=== PATIENT | female | born 1950 | race Caucasian/White ===

== ENCOUNTER 2018-01-23 01:59 | Inpatient (IN) | payer OTHER, MEDICARE ==
[~2018-01-23] VITALS: Ht 157.5 cm; Wt 80.1 kg
--- NOTE | 2018-01-23 02:03 | ED GI/GU/ABDOMINAL COMPLAINT ---
History of Present Illness General Chief Complaint: General Adult Stated Complaint: N/V/D Source: patient, EMS Exam Limitations: no limitations Vital Signs & Intake/Output Vital Signs & Intake/Output Vital Signs Date Time Temp Pulse Resp B/P B/P Pulse O2 O2 Flow FiO2 Mean Ox Delivery Rate 01/23 0610 99.5 94 20 130/62 94 Room Air 01/23 0602 Room Air 01/23 0544 98.4 93 20 166/72 96 Nasal Cannula 01/23 0212 96 Room Air 01/23 0202 97.5 98 18 186/88 96 Room Air Allergies Coded Allergies: Penicillins (HIVES 01/23/18) midazolam (From VERSED) (NAUSEA 01/23/18) Reconcile Medications Apixaban (Eliquis) 5 MG TABLET 1 TAB PO BID A.fib (Reported) Atorvastatin Calcium (Lipitor) 20 MG TABLET 1 TAB PO DAILY cholesterol ( Reported) Clopidogrel Bisulfate (Plavix) 75 MG TABLET 1 TAB PO DAILY heart health ( Reported) Diltiazem HCl (Diltiazem 12HR ER) 120 MG CAP.ER.12H 1 CAP PO DAILY A.fib ( Reported) Hydrochlorothiazide 12.5 MG TABLET 1 TAB PO DAILY htn (Reported) Losartan Potassium (Cozaar) 50 MG TABLET 1 TAB PO DAILY htn (Reported) Metoprolol Succ XL (Toprol XL) 25 MG TAB 3 TAB PO DAILY Heart (Reported) Montelukast Sodium (Singulair) 10 MG TABLET 1 TAB PO DAILY asthma (Reported) Niacin (Niaspan) 500 MG TAB.ER.24H 1.5 TAB PO QPM cholesterol (Reported) Sertraline HCl (Zoloft) 100 MG TABLET 1.5 TAB PO DAILY mental health ( Reported) Triage Nurses Notes Reviewed? yes ? n Is pt currently ? No Onset: Gradual Duration: day(s):, waxing and waning Timing: recent history Location: generalized abdomen Radiation: no radiation Activities at Onset: none Prior Abdominal Problems: none Modifying Factors: Worsens With: defecating, vomiting. Associated Symptoms: abdominal pain HPI: 67 yo woman h/o diabetes, cck, abdominal wall hernia, presents with 3 days of nausea, vomiting, diarrhea, without abdominal pain, fever, dysuria, chest pain. She notes not fever, headache, dyspnea, chest pain. She notes no suspicious food ingestions. She is otherwise well. Past History Travel History Traveled to [place] past 21 day No Medical History Any Pertinent Medical History? see below for history Gastrointestinal: abdominal wall hernia Endocrine: diabetes Surgical History Surgical History: cholecystectomy Family History Hx Contributory? No Review of Systems Review of Systems Constitutional: Reports: no symptoms. EENTM: Reports: no symptoms. Respiratory: Reports: no symptoms. Cardiovascular: Reports: no symptoms. GI: Reports: no symptoms. Genitourinary: Reports: no symptoms. Musculoskeletal: Reports: no symptoms. Skin: Reports: no symptoms. Neurological/Psychological: Reports: no symptoms. Hematologic/Endocrine: Reports: no symptoms. Immunologic/Allergic: Reports: no symptoms. All Other Systems: Reviewed and Negative Physical Exam Physical Exam General Appearance: well developed/nourished, mild distress, moderate distress Head: atraumatic, normal appearance Eyes: Bilateral: normal appearance. Ears, Nose, Throat, Mouth: hearing grossly normal Neck: normal inspection, supple, full range of motion, normal alignment Respiratory: normal breath sounds, chest non-tender, no respiratory distress, quiet respiration, lungs clear Cardiovascular: regular rate/rhythm Gastrointestinal: soft, large abdominal wall hernia, diminished bowel sounds. no focal tenderness Back: normal inspection Extremities: normal range of motion Neurologic/Psych: no motor/sensory deficits, awake, alert, oriented x 3 Skin: intact, normal color, warm/dry Core Measures ACS in differential dx? No Sepsis Present: No Sepsis Focused Exam Completed? No Progress Differential Diagnosis: biliary colic, bowel obstruction, cholecystitis, diverticulitis, gastritis, hepatitis, pancreatitis, PUD/GERD Plan of Care: Orders Procedure Date/time Status Nothing by Mouth 01/23 B Active Weight 01/23 0556 Active Vital Signs 01/23 0556 Active Teach/Educate 01/23 05 Active Pain Treatment and Response 01/24 556 Active Nutritional Intake, Monitor 01/24 556 Active Isolation 01/23 05 Active Intake & Output 01/23 0556 Active Patient Care Conference 01/23 0556 Active Activity/Ambulation 01/23 05 Active Patient Data 01/23 0504 Active LACTIC ACID 01/23 0504 Complete Saline Lock 01/23 0407 Active Misc Message 01/23 0407 Active ED Holding Orders 01/23 0407 Active Admit to inpatient 01/23 0407 Active Vital Signs 01/23 0407 Active Code Status 01/23 0407 Active FingerStick- Glucose 01/23 213 Active RAPID VIRAL INFLUENZA A 01/24 204 Complete TROPONIN LEVEL 01/24 204 Complete LIPASE 01/24 204 Complete LACTIC ACID 01/24 204 Complete HEPATIC FUNCTION PANEL 01/24 204 Complete CBC WITHOUT DIFFERENTIAL 01/24 204 Complete BASIC METABOLIC PANEL 01/24 204 Complete AMYLASE 01/24 204 Complete ACETONE 01/24 204 Complete EKG 01/24 204 Active Intake & Output 01/23 203 Active Current Medications Sig/Fatimah Start time Last Medication Dose Stop Time Status Admin Montelukast Sodium 10 MG 2200 01/23 2200 AC (Singulair) Atorvastatin Calcium 20 MG 1700 01/23 1700 AC (Lipitor) Apixaban 5 MG BID 01/23 1000 AC (Eliquis) Clopidogrel Bisulfate 75 MG DAILY 01/23 1000 AC (Plavix) Diltiazem HCl 120 MG DAILY 01/23 1000 AC (Cardizem SR) Hydrochlorothiazide 12.5 MG DAILY 01/23 1000 AC (Hydrodiuril) Losartan Potassium 50 MG DAILY 01/23 1000 AC (Cozaar) Metoprolol Succinate 75 MG DAILY 01/23 1000 AC (Toprol XL) Sertraline HCl 150 MG DAILY 01/23 1000 AC (Zoloft) Nicotinic Acid 750 MG WITH MEALS 01/23 0800 AC (Niacin 500MG Tab) Promethazine HCl 12.5 MG ONCE ONE 01/23 615 UNVr (Phenergen) 01/24 616 Laboratory Tests 01/23/18 0515: Lactic Acid 1.8 01/23/18 0209: Anion Gap 19 H, Estimated GFR 55 L, BUN/Creatinine Ratio 34.0 H, Glucose 344 H, Lactic Acid 2.6 H, Calcium 9.8, Total Bilirubin 0.9, Direct Bilirubin 0.5 H , AST 30, ALT 34, Alkaline Phosphatase 103, Troponin I 0.02, Total Protein 8.2, Albumin 4.7, Amylase 43, Lipase 136, CBC w Diff NO MAN DIFF REQ, RBC 4.72, MCV 89.9, MCH 30.6, MCHC 34.0, RDW 13.2, MPV 7.9, Gran % 87.4 H, Lymphocytes % 9.4 L, Monocytes % 2.5, Eosinophils % 0, Basophils % 0.7, Absolute Granulocytes 12.6 H, Absolute Lymphocytes 1.4, Absolute Monocytes 0.4, Absolute Eosinophils 0, Absolute Basophils 0.1, Acetone Level NEGATIVE Microbiology 01/23 209 NASOPHARYN: Influenza Virus A & B Rapid Smear - COMP Diagnostic Imaging: Viewed by Me: Radiology Read, CT Scan. Discussed w/RAD: Radiology Read, CT Scan. CXR Impression: PATIENT: JENNIFER MEHTA PRESENT AGE: 67 PATIENT ACCOUNT NO: [id number] : 50 LOCATION: ER ORDERING PHYSICIAN: Cooper Chawla MD SERVICE DATE: 01/23/18 EXAM TYPE: RAD - XRY- PORTABLE CHEST XRAY EXAMINATION: XR PORTABLE CHEST CLINICAL INFORMATION: Abdominal pain, dyspnea COMPARISON: None TECHNIQUE: Portable frontal view of the chest was obtained. FINDINGS: The lungs are clear with no focal consolidation. No evidence of pneumothorax, pulmonary edema, or pleural effusions. Cardiac size appears near the upper limits of normal. No intra-abdominal free air is seen. No acute osseous findings. IMPRESSION: No acute cardiopulmonary findings. DICTATED BY: Gerald Julien MD DATE/TIME DICTATED:01/23/18248 [employer] DESIGNER: ARELI DATE/TIME TRANSCRIBED:01/23/18248 CONFIDENTIAL, DO NOT COPY WITHOUT APPROPRIATE AUTHORIZATION. <Electronically signed in Other Vendor System> SIGNED BY: Gerald Julien MD 01/23/18 0253, PATIENT: JENNIFER MEHTA PRESENT AGE: 67 PATIENT ACCOUNT NO: [id number] : LOCATION: ER ORDERING PHYSICIAN: Cooper Chawla MD SERVICE DATE: 01/23/18 EXAM TYPE: CAT - CT ABD & PELVIS W/O IV CONTRAS EXAMINATION: CT ABDOMEN AND PELVIS WITHOUT CONTRAST CLINICAL INFORMATION: Abdominal pain, distention COMPARISON: None TECHNIQUE: Multidetector volumetric imaging was performed from the superior aspect of the liver through the pubic symphysis. Sagittal and coronal reformatted images were obtained on the technologist's workstation. DLP: 1105.45 mGy-cm FINDINGS: LUNG BASES: There is subsegmental left lower lobe atelectasis. Coronary artery calcifications are present. LIVER, GALLBLADDER, AND BILIARY TREE: The liver is normal in size, shape, and attenuation. A region of hypoattenuation in the gallbladder fossa suggests fatty infiltration. No biliary ductal dilatation is present. Patient is status post cholecystectomy. PANCREAS: Unremarkable. SPLEEN: Unremarkable. ADRENAL GLANDS: Unremarkable. KIDNEYS AND URETERS: The kidneys are normal in size, shape, and attenuation. There is a 3.6 cm right upper pole renal cyst. No hydronephrosis, hydroureter, or calculi seen. BLADDER: Unremarkable. GASTROINTESTINAL TRACT: There is an upper abdominal ventral hernia containing part of the stomach and collapsed transverse colon. There is moderate fluid distention of the stomach, which could reflect a degree of gastric outlet obstruction secondary to the hernia. Adjacent to the transverse colon in the lower portion of the hernia sac there is fluid as well as fat stranding. The intra-abdominal portions of the colon are also collapsed. There is mild scattered diverticulosis of the colon. No evidence of bowel obstruction. No free air is seen. ABDOMINAL WALL: Upper abdominal hernia as described above, containing a portion of stomach and transverse colon. The hernia neck measures approximately 6.6 x 7.0 cm, and the hernia sac measures approximately 18.0 x 12.2 x 15.0 cm. There is a smaller periumbilical hernia containing fat as well as a small amount of fluid and stranding. LYMPH NODES: Normal. VASCULAR: There is atherosclerotic calcification along the aorta. PELVIC VISCERA: An IUD is present in the uterus. OSSEOUS STRUCTURES: Degenerative changes are noted in the spine. IMPRESSION: 1. Upper abdominal ventral hernia containing part of the stomach and transverse colon. The stomach is moderately distended with fluid, which could reflect a degree of gastric outlet obstruction secondary to the hernia. No findings to suggest colonic obstruction. Nonspecific fluid and stranding are present in the inferior portion of the hernia sac adjacent to the colon. 2. Periumbilical hernia containing fat, as well as a small amount of fluid and stranding. 3. Mild colonic diverticulosis. DICTATED BY: Gerald Julien MD DATE/TIME DICTATED:01/23 [employer] DESIGNER:ARELI DATE/TIME TRANSCRIBED:01/23/18249 CONFIDENTIAL, DO NOT COPY WITHOUT APPROPRIATE AUTHORIZATION. <Electronically signed in Other Vendor System> SIGNED BY: Gerald Julien MD 01/23/18 0308 Initial ED EKG: nsr, non specific st changes. Departure Departure Disposition: STILL A PATIENT Condition: Stable Clinical Impression Primary Impression: Abdominal pain Secondary Impressions: Diarrhea, Gastritis, Hyperglycemia, Lactic acidosis, Vomiting Referrals: Josi RUBIN,Shauna Varela (PCP/Family) Departure Forms: Customer Survey General Discharge Information Comments 01/23/18, 4am... discussed with dr. xiong... pt likely not with significant obstruction... admit to medicine Admission Note Spoke With: Felix RUBIN,Mauraquirino Documentation of Exam: Documentation of any treatments & extenuating circumstances including Concerns Regarding Discharge (functional status, medication knowledge or non-compliance, living conditions, etc.) that warrant an admission rather than observation: pt with elevated bun/creatinine, lactic acidosis, diarrhea x 3 days, elevated glucose... pt merits iv fluids, antiemetics, bowel rest. Critical Care Note Critical Care Note Critical Care Time: 30-74 min
[2018-01-23 02:34] LABS: ABSOLUTE BASOPHIL COUNT 0.1 /CUMM (0.0-0.2); ABSOLUTE EOSINOPHIL COUNT 0 /CUMM (0.0-0.7); ABSOLUTE GRANULOCYTE CT 12.6 /CUMM (1.4-6.5); ABSOLUTE LYMPH COUNT 1.4 /CUMM (1.2-3.4); ABSOLUTE MONOCYTE COUNT 0.4 /CUMM (0.10-0.60); BASOPHIL % 0.7 % (0.0-2.0); EOSINOPHIL % 0 % (0-5); HEMATOCRIT 42.4 % (37-47); MEAN CORPUSCULAR HGB 30.6 PG (27.0-31.0); MEAN CORPUSCULAR VOLUME 89.9 FL (81.0-99.0); MEAN PLATELET VOLUME 7.9 FL (7.4-10.4); PLATELET COUNT 304 /CUMM (130-400); RBC DISTRIBUTION WIDTH 13.2 % (11.5-14.5); RED BLOOD CELL CT 4.72 /CUMM (4.20-5.40); WHITE BLOOD CELL COUNT 14.4 /CUMM (4.8-10.8)
[2018-01-23 02:50] LABS: GRANULOCYTE % 87.4 % (42.2-75.2)
--- NOTE | 2018-01-23 02:53 | RADIOLOGY REPORT ---
EXAMINATION: XR PORTABLE CHEST CLINICAL INFORMATION: Abdominal pain, dyspnea COMPARISON: None TECHNIQUE: Portable frontal view of the chest was obtained. FINDINGS: The lungs are clear with no focal consolidation. No evidence of pneumothorax, pulmonary edema, or pleural effusions. Cardiac size appears near the upper limits of normal. No intra-abdominal free air is seen. No acute osseous findings. IMPRESSION: No acute cardiopulmonary findings.
--- NOTE | 2018-01-23 03:08 | CT SCAN REPORT ---
EXAMINATION: CT ABDOMEN AND PELVIS WITHOUT CONTRAST CLINICAL INFORMATION: Abdominal pain, distention COMPARISON: None TECHNIQUE: Multidetector volumetric imaging was performed from the superior aspect of the liver through the pubic symphysis. Sagittal and coronal reformatted images were obtained on the technologist's workstation. DLP: 1105.45 mGy-cm FINDINGS: LUNG BASES: There is subsegmental left lower lobe atelectasis. Coronary artery calcifications are present. LIVER, GALLBLADDER, AND BILIARY TREE: The liver is normal in size, shape, and attenuation. A region of hypoattenuation in the gallbladder fossa suggests fatty infiltration. No biliary ductal dilatation is present. Patient is status post cholecystectomy. PANCREAS: Unremarkable. SPLEEN: Unremarkable. ADRENAL GLANDS: Unremarkable. KIDNEYS AND URETERS: The kidneys are normal in size, shape, and attenuation. There is a 3.6 cm right upper pole renal cyst. No hydronephrosis, hydroureter, or calculi seen. BLADDER: Unremarkable. GASTROINTESTINAL TRACT: There is an upper abdominal ventral hernia containing part of the stomach and collapsed transverse colon. There is moderate fluid distention of the stomach, which could reflect a degree of gastric outlet obstruction secondary to the hernia. Adjacent to the transverse colon in the lower portion of the hernia sac there is fluid as well as fat stranding. The intra-abdominal portions of the colon are also collapsed. There is mild scattered diverticulosis of the colon. No evidence of bowel obstruction. No free air is seen. ABDOMINAL WALL: Upper abdominal hernia as described above, containing a portion of stomach and transverse colon. The hernia neck measures approximately 6.6 x 7.0 cm, and the hernia sac measures approximately 18.0 x 12.2 x 15.0 cm. There is a smaller periumbilical hernia containing fat as well as a small amount of fluid and stranding. LYMPH NODES: Normal. VASCULAR: There is atherosclerotic calcification along the aorta. PELVIC VISCERA: An IUD is present in the uterus. OSSEOUS STRUCTURES: Degenerative changes are noted in the spine. IMPRESSION: 1. Upper abdominal ventral hernia containing part of the stomach and transverse colon. The stomach is moderately distended with fluid, which could reflect a degree of gastric outlet obstruction secondary to the hernia. No findings to suggest colonic obstruction. Nonspecific fluid and stranding are present in the inferior portion of the hernia sac adjacent to the colon. 2. Periumbilical hernia containing fat, as well as a small amount of fluid and stranding. 3. Mild colonic diverticulosis.
[2018-01-23] MEDS ORDERED: ELIQUIS5 M1 PO (05:30)
[2018-01-23] MEDS ORDERED: PLAVIX75 M1 PO (05:31)
[2018-01-23] MEDS ORDERED: ZOLOFT100 M1 PO (05:31)
[2018-01-23] MEDS ORDERED: HYDROCHLOROTH12.5 M2 PO (05:32)
[2018-01-23] MEDS ORDERED: SINGULAIR10 M1 PO (05:32)
[2018-01-23] MEDS ORDERED: COZAAR50 M1 PO (05:32)
[2018-01-23] MEDS ORDERED: LIPITOR20 M2 PO (05:37)
[2018-01-23] MEDS ORDERED: DILTIAZEM 12HR120 MG PO (05:37)
[2018-01-23] MEDS ORDERED: TOPROL XL25 M1 PO (05:38)
[2018-01-23] MEDS ORDERED: NIASPAN500 M1 PO (05:39)
[2018-01-23 06:10] VITALS: BP 130/62
--- NOTE | 2018-01-23 06:15 | History & Physical ---
Sharif RUBIN,Leida 01/23/18 0615: General Information and HPI MD Statement: I have seen and personally examined JENNIFER RODRIGUEZ and documented this H&P. The patient is a 67 year old F who presented with a patient stated chief complaint of nausea and vomiting of 3 days' duration. Source of Information: patient, family, old records Exam Limitations: no limitations History of Present Illness: Patient is a 67-year-old female with a past medical history significant for ACS with 5 stents placed 4 years ago currently on Plavix, large rectus diastases and hernia, diabetes on insulin with previous amputations to her toes, asthma, bladder cancer remote, A. fib on Eliquis, cholecystectomy remote with chronic diarrhea that comes to see us for nausea and vomiting of 3 days' duration. The patient states that she felt fine before the vomiting started on Sunday. She states that since then she has vomited about 10 times per day. She denies any abdominal pain. She states that the vomitus was brown in color, no obvious blood. The patient also states that she has had diarrhea of increased frequency from her chronic diarrhea that she gets ever since her cholecystectomy 20 years ago. She also complains of headache, weakness and dehydration. She denies any fever, chills, weakness or neurological deficits anywhere the body, palpitations , loss of consciousness. The patient denies any sick contacts, eating different foods, recent travel. The patient states that she had a similar illness last year in [facility] and at that time was diagnosed with pancreatitis. She denies any hypertriglyceridemia, hypercalcemia, issues with alcohol, and as stated, had her gallbladder removed years ago. The patient admits to having smoked 2 packs per day since the age of 10, quit 4 years ago. She denies any alcohol or illicit drug use. The patient lives with her son who also works as an EMT. Allergies/Medications Allergies: Coded Allergies: Penicillins (HIVES 01/23/18) midazolam (From VERSED) (NAUSEA 01/23/18) Home Med list Apixaban (Eliquis) 5 MG TABLET 1 TAB PO BID A.fib (Reported) Atorvastatin Calcium (Lipitor) 20 MG TABLET 1 TAB PO DAILY cholesterol ( Reported) Clopidogrel Bisulfate (Plavix) 75 MG TABLET 1 TAB PO DAILY heart health ( Reported) Diltiazem HCl (Diltiazem 12HR ER) 120 MG CAP.ER.12H 1 CAP PO DAILY A.fib ( Reported) Hydrochlorothiazide 12.5 MG TABLET 1 TAB PO DAILY htn (Reported) Losartan Potassium (Cozaar) 50 MG TABLET 1 TAB PO DAILY htn (Reported) Metoprolol Succ XL (Toprol XL) 25 MG TAB 3 TAB PO DAILY Heart (Reported) Montelukast Sodium (Singulair) 10 MG TABLET 1 TAB PO DAILY asthma (Reported) Niacin (Niaspan) 500 MG TAB.ER.24H 1.5 TAB PO QPM cholesterol (Reported) Sertraline HCl (Zoloft) 100 MG TABLET 1.5 TAB PO DAILY mental health ( Reported) Compliance With Home Meds: GOOD Past History Travel History Traveled to [place] past 21 day No Medical History Blood Transfusion Hx: No Cardiovascular: hypertension, hyperlipidemia, 5 STENTS Gastrointestinal: abdominal wall hernia Musculoskeletal: HERNIA Endocrine: diabetes Isolation History: Standard Influenza Vaccine: 08/19/17 Surgical History Surgical History: cholecystectomy Past Family/Social History Family History Relations & Conditions if any SISTER FHx: diabetes mellitus MOTHER Heart attack Psychosocial History Where do you live? Home Services at Home: None Smoking Status: Former Smoker Review of Systems Review of Systems Constitutional: Reports: weakness. EENTM: Reports: no symptoms. Cardiovascular: Reports: no symptoms. Respiratory: Reports: no symptoms. GI: Reports: see HPI, diarrhea, nausea, vomiting. Genitourinary: Reports: no symptoms. Musculoskeletal: Reports: no symptoms. Skin: Reports: no symptoms. Neurological/Psychological: Reports: no symptoms. Hematologic/Endocrine: Reports: no symptoms. Immunologic/Allergic: Reports: no symptoms. All Other Systems: Reviewed and Negative Exam & Diagnostic Data Last 24 Hrs of Vital Signs/I&O Vital Signs Date Time Temp Pulse Resp B/P B/P Pulse O2 O2 Flow FiO2 Mean Ox Delivery Rate 01/23 0610 99.5 94 20 130/62 94 Room Air 01/23 0602 Room Air 01/23 0544 98.4 93 20 166/72 96 Nasal Cannula 01/23 0212 96 Room Air 01/23 0202 97.5 98 18 186/88 96 Room Air Intake & Output 01/23 1600 01/23 0800 01/23 0000 Intake Total 2049 Output Total Balance 2049 Intake, IV 2049 Patient 217 lb Weight Weight Reported by Patient Measurement Method Physical Exam General Appearance Alert, Oriented X3, Cooperative, Moderate Distress Skin No Rashes, No Breakdown, No Significant Lesion Skin Temp/Moisture Exam: Warm/Dry Sepsis Skin Exam (color): Normal for Ethnicity HEENT Atraumatic, PERRLA, EOMI, Mucous Membr. moist/pink Cardiovascular Regular Rate, Normal S1, Normal S2, No Murmurs Lungs Clear to Auscultation, Normal Air Movement Abdomen Normal Bowel Sounds, No Tenderness, rectus diastasis and hernia, firmness of the hernia, no tenderness of palpation. Neurological Normal Speech Extremities No Clubbing, No Cyanosis, No Edema, Normal Pulses, No Tenderness/ Swelling, decreased sensation in toes, one amputated toe each foot. Vascular Normal Pulses, Pulses Symmetrical Sepsis Peripheral Pulse Location: Radial Sepsis Peripheral Pulse Exam: Normal Sepsis Cap Refill Exam: <2 Sec Last 24 Hrs of Labs/Dileep: Laboratory Tests 01/23/18 0515: Lactic Acid 1.8 01/23/18 0209: Anion Gap 19 H, Estimated GFR 55 L, BUN/Creatinine Ratio 34.0 H, Glucose 344 H, Lactic Acid 2.6 H, Calcium 9.8, Total Bilirubin 0.9, Direct Bilirubin 0.5 H , AST 30, ALT 34, Alkaline Phosphatase 103, Troponin I 0.02, Total Protein 8.2, Albumin 4.7, Amylase 43, Lipase 136, CBC w Diff NO MAN DIFF REQ, RBC 4.72, MCV 89.9, MCH 30.6, MCHC 34.0, RDW 13.2, MPV 7.9, Gran % 87.4 H, Lymphocytes % 9.4 L, Monocytes % 2.5, Eosinophils % 0, Basophils % 0.7, Absolute Granulocytes 12.6 H, Absolute Lymphocytes 1.4, Absolute Monocytes 0.4, Absolute Eosinophils 0, Absolute Basophils 0.1, Acetone Level NEGATIVE Microbiology 01/23 714 STOOL: Clostridium difficile Toxin A & B - ORD 01/23 020 NASOPHARYN: Influenza Virus A & B Rapid Smear - COMP Assessment/Plan Assessment: Patient is a 67-year-old female with a past medical history significant for ACS with 5 stents placed 4 years ago currently on Plavix, large rectus diastases and hernia, diabetes on insulin with previous amputations to her toes, asthma, bladder cancer remote, A. fib on Eliquis, cholecystectomy remote with chronic diarrhea that comes to see us for nausea and vomiting of 3 days' duration and an increased frequency in her chronic diarrhea. She denies any associated abdominal pain. She denies any sick contacts, eating anything out of the ordinary. The patient had similar complaints prompting an admission to [facility] for pancreatitis last year. The patient states that she has good diabetic control. She denies any hypertriglyceridemia, hypercalcemia, issues with alcohol, and as stated, had her gallbladder removed years ago. In the ED, vitals found to be stable, blood pressure 186/88 on admission which decreased to 130/62, afebrile. WBC 14.4, creatinine 1, BUN 34, anion gap 19, acetone negative, flu swab negative, lipase negative, glucose 344, lactic acid 2.6 trending down to 1.8, direct bilirubin elevated at 0.5. CT abdomen and pelvis showed hernia containing transverse colon and part of the stomach, stomach showing moderate distention with fluid which could reflect a degree of gastric outlet obstruction secondary to hernia, no findings to suggest colonic obstruction. Chest x-ray negative for any acute process. EKG showed a QTC of 503, rate of 83, no changes suggestive of ACS. Differentials include viral gastroenteritis, partial gastric obstruction, gastroparesis, pancreatitis. Patient's symptoms do not suggest gastric obstruction, she continues to have diarrhea and passes gas. CT abdomen and pelvis shows no evidence of bowel obstruction but potentially some degree of gastric outlet obstruction secondary to her large rectus diastases and hernia/ hiatal hernia. Patient's lipase level is normal which makes pancreatitis less likely. Patient does have an elevated glucose today which makes gastroparesis potential but states that she usually has better control. Plan Nausea and vomiting likely secondary to gastroenteritis/hiatal hernia/ gastroparesis -Surgical consult for potential partial obstruction -Obtain previous records of pancreatitis from [facility] -Advance diet as tolerated -Normal saline at a rate of 75 mL per hour -U tox -Endocrinology consult as patient's sugars are not controlled and could be causing her gastroparesis. For now half dose of Levemir (15 units) as the patient is not eating. -Hemoglobin A1c -Sliding scale insulin with Accu-Cheks -UA to assess any diabetic damage to the kidney -Phenergan for nausea as patient has long QTC Diarrhea -Stool C. difficile and cultures -Follow BEP and replete potassium as needed Previous history of ACS, stenting, on Plavix -Continue patient's Plavix -Get old cardiology records from Dr. Oliveros Chronic medical problems -Singular 10 mg for asthma -Lipitor 20 mg for hyperlipidemia -Zoloft for anxiety/depression -Metoprolol 75 mg daily, losartan 50 mg daily, hydrochlorothiazide 12.5 mg daily for hypertension -Eliquis 5 mg twice a day and Cardizem 120 mg daily for A. fib Nothing by mouth DVT prophylaxis with Eliquis Patient is full code As Ranked By This Provider Problem List: 1. Vomiting 2. Diarrhea 3. Hyperglycemia Core Measures/Misc (08/05) Acute Coronary Syndrome ACS Diagnosis: No Congestive Heart Failure Congestive Heart Failure Diagnosis No Cerebrovascular Accident CVA/TIA Diagnosis: No VTE (View Protocol) VTE Risk Factors Acute Medical Illness No Mechanical VTE Prophylaxis d/t N/A MechProphylax Ordered No VTE Pharm Prophylaxis d/t NA PharmProphylax ordered Sepsis (View protocol) Sepsis Present: No Felix RUBIN, [facility] 01/23/18 0729: Attending MD Review Statement Attending Statement Attending MD Statement: examined this patient, discuss w/resident/PA/ELECTRICAL/INSTRUMENT TECHNICIAN, agreed w/resident/PA/ELECTRICAL/INSTRUMENT TECHNICIAN, discussed with family, reviewed images, amended to note Attending Assessment/Plan: 67 yo morbidly obese F with h/o HTN, IDDM, CAD s/p stents, Afib on eliquis, asthma, chronic ventral hernia (did not want repair), mainly follows at [facility], is brought in for evaluation of 3-day h/o nausea, nonbloody, nonbilious vomiting and nonbloody diarrhea. Unable to keep anything down. No abdominal discomfort, fever/ chills, chest discomfort. She denies sick contacts, antibiotics or outside food. Vitals stable. Exam: dry mucous membranes, in mild distress due to nausea, Chest clear, Heart S1S2 regular, systolic murmur, Abd soft, distended, large ventral hernia++ nontender, not reducible but patient reports it is intermittently reducible, bowel sounds present though diminished, LE: no edema, left 4th and right 2nd toe amputated due to diabetic foot infections. Labs: WBC 14.4, bicarb 33, AG 19, BUN 34, creat 1.0, glucose 344, lactic acid 2.6, trop neg, lipase normal. Acetone negative. CT abd/pelvis: upper abdominal ventral hernia containing part of stomach and transverse colon, stomach moderate distended with fluid reflect a degree of gastric outlet obstruction secondary to hernia, no colonic obstruction. Periumbilical hernia containing fat. Mild colonic diverticulosis. CXR: neg. EKG: sinus rhythm, TWI in I, aVL (no old EKG), Qtc 503. ER reviewed CT imaging with Dr. Blanca who felt patient is not likely in obstruction. Assessment and plan: 1. Intractable nausea, vomiting and diarrhea ?gatroenteritis ?gastroparesis ? ileus ?obstructed hernia 2. CT evidence of gastric outlet obstruction, seems less likely given patient is having bowel movements 3. Large ventral hernia 4. Afib on eliquis 5. Insulin dependent diabetes with hyperglycemia 6. Elevated lactic acid 7. Leukocytosis is likely reactive - Admit to general medicine - Serial abdomen exams - NPO - IV hydration - Trend lactic acid - Anti-emetics avoid Qtc prolonging meds as patient's EKG shows prolonged Qtc - Check urinalysis and urine tox screen - Stool studies, Cdiff. - Accucheks, Insulin NPO SS, half dose of levemir in AM (as patient not eating), Endo consult - Recheck BEP in 6 hours after IV hydration - Surgery consult - Resume home meds when able to take PO diltiazem, plavix, sertraline, lipitor, metoprolol, and losartan DVT ppx Eliquis. Full code. Leola Gonzalez 01/23/18 0750: Resident Review Statement Resident Statement: examined this patient, discussed with digital intern, agreed with digital intern, discussed with family, reviewed EMR data (avail), discussed with nursing , reviewed images Other Findings: Mrs. Rodriguez is a 67 yo lady with PMHx. of dm, htn, asthma, A.fib on eliquis, ACS s/p stent presented to ED with a c/o nausea, vomiting and diarrhea over the last 3 days. She denies any abdominal, fever or chills, no recent antibiotic use, she was found to have leukocytosis, mildly elevated LA, ag of 19 and BS 344 admitted for intractable n/v, dehydration possibly 2/[address] abdomen showed hernia containing transverse colon and part of the stomach, stomach showing moderate distention with fluid which could reflect a degree of gastric outlet obstruction secondary to hernia, ED spoke with Dr. delgado who will see the patient at am, will admit the patient to general medicine floor, NPO, iv fluid, will trend LA, antiemetic, endocrine consult, official surgical consult, will check stool for c.diff, dvt ppx. thaddeus Villaseñor
--- NOTE | 2018-01-23 07:31 | Admission Certification ---
Admission Certification Certification Statement - As attending physician, I certify that at the time of - admission, based on clinical presentation, severity of - symptoms, need for further diagnostic testing and - therapeutic interventions, and risk of adverse outcomes - without in-hospital treatment, in my clinical assessment, - this patient requires an acute hospital stay for a minimum - of two nights or longer. I have also considered psychsocial - factors such as support system, advanced age, financial - issues, cognitive issues, and failed out-patient treatments, - past re-admission history, safety of patient, and lack of - compliance as applicable. Specific rationale supporting this admission is: Intractable nausea, vomiting and diarrhea, possible obstructed hernia vs ileus vs gastroparesis in this patient with diabetes.
[2018-01-23 12:40] VITALS: BP 128/80
--- NOTE | 2018-01-23 13:27 | Cons- Endocrinology ---
General Information and HPI Consulting Request Date of Consult: 01/23/18 Requested By: medical team Reason for Consult: uncontrolled diabetes Source of Information: patient, old records Exam Limitations: no limitations History of Present Illness: This 67-year-old woman is admitted with nausea vomiting and diarrhea. She states she has not been able to keep anything down for the past 2-3 days. She had one previous episode of this and was told of pancreatitis in the past. She denies any abdominal pain at present. The patient has a history of diabetes mellitus type 2. She is on 37 units of Lantus once a day and sliding scale NovoLog. The patient has a known large ventral hernia. She denies any abdominal pain at present. She states it started after her gallbladder surgery 40 years ago. She also has a history of heart disease with atrial fibrillation and coronary artery disease status post stent placements. Allergies/Medications Allergies: Coded Allergies: Penicillins (HIVES 01/23/18) midazolam (From VERSED) (NAUSEA 01/23/18) Home Med List: Apixaban (Eliquis) 5 MG TABLET 1 TAB PO BID A.fib (Reported) Atorvastatin Calcium (Lipitor) 20 MG TABLET 1 TAB PO DAILY cholesterol ( Reported) Clopidogrel Bisulfate (Plavix) 75 MG TABLET 1 TAB PO DAILY heart health ( Reported) Diltiazem HCl (Diltiazem 12HR ER) 120 MG CAP.ER.12H 1 CAP PO DAILY A.fib ( Reported) Hydrochlorothiazide 12.5 MG TABLET 1 TAB PO DAILY htn (Reported) Losartan Potassium (Cozaar) 50 MG TABLET 1 TAB PO DAILY htn (Reported) Metoprolol Succ XL (Toprol XL) 25 MG TAB 3 TAB PO DAILY Heart (Reported) Montelukast Sodium (Singulair) 10 MG TABLET 1 TAB PO DAILY asthma (Reported) Niacin (Niaspan) 500 MG TAB.ER.24H 1.5 TAB PO QPM cholesterol (Reported) Sertraline HCl (Zoloft) 100 MG TABLET 1.5 TAB PO DAILY mental health ( Reported) Review of Systems Review of Systems Constitutional: Denies: chills, fever. Cardiovascular: Denies: chest pain. Respiratory: Denies: short of breath. GI: Reports: diarrhea, nausea, vomiting. Genitourinary: Denies: dysuria. Skin: Reports: no symptoms. Past History Travel History Traveled to [place] past 21 day No Medical History Blood Transfusion Hx: No Cardiovascular: hypertension, hyperlipidemia, 5 STENTS Gastrointestinal: abdominal wall hernia Musculoskeletal: HERNIA Endocrine: diabetes Surgical History Surgical History: cholecystectomy Family History Relations & Conditions If Any: SISTER FHx: diabetes mellitus MOTHER Heart attack Psychosocial History Where Do You Live? Home Services at Home: None Smoking Status: Former Smoker Exam & Diagnostic Data Last 24 Hrs of Vital Signs/I&O Vital Signs Date Time Temp Pulse Resp B/P B/P Pulse O2 O2 Flow FiO2 Mean Ox Delivery Rate 01/23 1240 99.1 90 20 128/80 94 Room Air 03/07 1100 Room Air 03/07 0610 99.5 94 20 130/62 94 Room Air 03/07 0602 Room Air 03/ 0544 98.4 93 20 166/72 96 Nasal Cannula 03/ 0212 96 Room Air / 0202 97.5 98 18 186/88 96 Room Air Intake & Output 01/23 1600 01/23 0800 03/ 0000 Intake Total 2050 Output Total 300 Balance -300 2050 Intake, IV 2050 Output, Urine 300 Patient 217 lb Weight Weight Reported by Patient Measurement Method Vital Signs Date Time Temp Pulse Resp B/P B/P Pulse O2 O2 Flow FiO2 Mean Ox Delivery Rate 01/23 1240 99.1 90 20 128/80 94 Room Air 03/ 1100 Room Air 03/ 0610 99.5 94 20 130/62 94 Room Air 03/ 0602 Room Air 03/07 0544 98.4 93 20 166/72 96 Nasal Cannula / 0212 96 Room Air 03/ 0202 97.5 98 18 186/88 96 Room Air Intake & Output 01/23 1600 01/23 0800 03/ 0000 Intake Total 2050 Output Total 300 Balance -300 2050 Intake, IV 2050 Output, Urine 300 Patient 217 lb Weight Weight Reported by Patient Measurement Method Physical Exam General Appearance: alert, awake, comfortable Head: normal appearance Eyes: Bilateral: normal appearance. Respiratory: normal breath sounds Cardiovascular: regular rate/rhythm Gastrointestinal: decreased bowel sounds. large hernia mid abdomen without tenderness. Extremities: normal inspection Labs/Dileep Results: Laboratory Tests 01/23 01/23 01/23 1020 0840 0515 Chemistry Sodium (137 - 145 mmol/L) 142 Potassium (3.5 - 5.1 mmol/L) 3.5 Chloride (98 - 107 mmol/L) 95 L Carbon Dioxide (22 - 30 mmol/L) 34 H Anion Gap (5 - 16) 13 BUN (7 - 17 mg/dL) 27 H Creatinine (0.5 - 1.0 mg/dL) 1.1 H Estimated GFR (>60 ml/min) 50 L BUN/Creatinine Ratio (7 - 25 %) 24.5 Lactic Acid (0.7 - 2.1 mmol/L) 1.8 Urines Urinalysis LIGHT H Urine Color (YEL,AMB,STR) YEL Urine Clarity (CLEAR) CLEAR Urine pH (5.0 - 8.0) 7.0 Ur Specific [place] (1.001 - 1.035) 1.020 Urine Protein (NEG,<30 MG/DL) 100 H Urine Ketones (NEG) 15 H Urine Nitrite (NEG) NEG Urine Bilirubin (NEG) NEG Urine Urobilinogen (0.1 - 1.0 EU/dl) 0.2 Ur Leukocyte Esterase (NEG) NEG Ur Microscopic SEDIMENT EXAMINED Urine RBC (0 - 5 /HPF) 5-10 H Urine WBC (0 - 2 /HPF) 5-10 H Ur Epithelial Cells (NONE,FEW) MOD H Urine Bacteria (NEG/NONE) RARE H Urine Mucus (FEW,NONE) FEW Urine Hemoglobin (NEG) SMALL H Urine Glucose (N MG/DL) >=1000 H 01/23 0209 Chemistry Sodium (137 - 145 mmol/L) 141 Potassium (3.5 - 5.1 mmol/L) 4.1 Chloride (98 - 107 mmol/L) 89 L Carbon Dioxide (22 - 30 mmol/L) 33 H Anion Gap (5 - 16) 19 H BUN (7 - 17 mg/dL) 34 H Creatinine (0.5 - 1.0 mg/dL) 1.0 Estimated GFR (>60 ml/min) 55 L BUN/Creatinine Ratio (7 - 25 %) 34.0 H Glucose (65 - 99 mg/dL) 344 H Lactic Acid (0.7 - 2.1 mmol/L) 2.6 H Calcium (8.4 - 10.2 mg/dL) 9.8 Total Bilirubin (0.2 - 1.3 mg/dL) 0.9 Direct Bilirubin (< 0.4 mg/dL) 0.5 H AST (14 - 36 U/L) 30 ALT (9 - 52 U/L) 34 Alkaline Phosphatase (<127 U/L) 103 Troponin I (< 0.11 ng/ml) 0.02 Total Protein (6.3 - 8.2 g/dL) 8.2 Albumin (3.5 - 5.0 g/dL) 4.7 Amylase (30 - 110 U/L) 43 Lipase (23 - 300 U/L) 136 Hematology CBC w Diff NO MAN DIFF REQ WBC (4.8 - 10.8 /CUMM) 14.4 H RBC (4.20 - 5.40 /CUMM) 4.72 Hgb (12.0 - 16.0 G/DL) 14.4 Hct (37 - 47 %) 42.4 MCV (81.0 - 99.0 FL) 89.9 MCH (27.0 - 31.0 PG) 30.6 MCHC (33.0 - 37.0 G/DL) 34.0 RDW (11.5 - 14.5 %) 13.2 Plt Count (130 - 400 /CUMM) 304 MPV (7.4 - 10.4 FL) 7.9 Gran % (42.2 - 75.2 %) 87.4 H Lymphocytes % (20.5 - 51.1 %) 9.4 L Monocytes % (1.7 - 9.3 %) 2.5 Eosinophils % (0 - 5 %) 0 Basophils % (0.0 - 2.0 %) 0.7 Absolute Granulocytes (1.4 - 6.5 /CUMM) 12.6 H Absolute Lymphocytes (1.2 - 3.4 /CUMM) 1.4 Absolute Monocytes (0.10 - 0.60 /CUMM) 0.4 Absolute Eosinophils (0.0 - 0.7 /CUMM) 0 Absolute Basophils (0.0 - 0.2 /CUMM) 0.1 Toxicology Acetone Level (NEGATIVE) NEGATIVE Assessment/Plan Assessment/Plan This patient has a history of type 2 diabetes treated with insulin and associated with morbid obesity. She is presently n.p.o. For the present time while n.p.o. I would hydrate the patient with D5 half- normal saline +20 mEq KCl at 100 cc/h. In addition we need to place her on Levemir 8 units twice a day and sliding scale NovoLog every 4 hours. Sliding scale NovoLog every 4 hours should be less than 150 give no insulin, 151-200 give 4 units NovoLog, 201-250 give 6 units NovoLog, 251-300 give 7 units NovoLog , 301-350 give 8 units NovoLog, 351-400 give 9 units NovoLog. We need to keep glucose in the IV so as not to give unopposed insulin. The patient has a large ventral hernia with contents including stomach and bowel. This could certainly be contributing to her nausea and vomiting. The patient could indeed have gastric outlet obstruction depending on the position of her stomach in the hernial sac. Suggest GI consult and surgical consult.. Consult Acknowledgment - Thank you for your consult request.
[2018-01-23 13:48] VITALS: BP 156/78
--- NOTE | 2018-01-23 16:08 | Event Note ---
Event Note Event Note: S: Per surgical team, patient is to go for urgent hernia repair for gastric outlet obstruction tomorrow in the a.m. B: Patient has had large surgical, asymptomatic hernia for approximately 40 years and was admitted after 3 days of severe nausea and vomiting. She has a PMH significant for 100 pack year smoking history (quit 4 years ago), CAD status post PCI with 5 stents placed 3 years ago, paroxysmal A. fib, DM, hyperlipidemia. Patient reports that she has had no chest pain, chest discomfort, palpitations recently and prior to her onset of nausea and vomiting she was able to climb a flight of stairs without shortness of breath or chest pain. AR: Patient's cardiac history and risk of surgery was discussed at length with the patient and her daughter. Her RCRI is 3 with history of CAD and DM requiring insulin. Plan for surgery and patient's history was discussed with the attending, Dr. Perera, and on-call ribbon cleaner, Dr. Diaz. They both agree that pursuing surgery is reasonable. Patient also was consented and understands the potential risk of surgery is willing to go for the procedure.
--- NOTE | 2018-01-23 16:25 | History & Physical Pre-Op ---
General Information and HPI Source of Information: patient Exam Limitations: no limitations History of Present Illness: CC: nausea HPI: 67-year-old nondiabetic ex-smoker with A. fib and coronary artery disease has several stents (several years ago) meds include metoprolol Plavix and Elliquis. No appreciable old records here to compare. She came to the ER late last night because of 3 days of vomiting. She has a long-standing ventral incisional hernia related to an open cholecystectomy 40 years ago she has not had it addressed because it never really bothered her even now she feels it's about the same size and doesn't hurt, she says that sometimes it gets softer she has not had imaging of it. She also has chronic diarrhea. Patient and her daughter pads that she's been intermittently vomiting sometimes daily for years usually attributed to stress. Since she's been here the vomiting has subsided but she remains constantly nauseous which is relieved only by meds. Prior to this she does not recall any unusual straining or unusual meals she recalls a similar episode a year ago at another hospital which was then attributed to pancreatitis. Otherwise before this, no changes bowel habits, weight or appetite , no recent flulike symptoms shortness of breath chest pain fevers or bleeding per rectum. [facility] Family history negative for cancer positive for hypertension, she doesn't recall otherwise. Allergies/Medications Allergies: Coded Allergies: Penicillins (HIVES 01/23/18) midazolam (From VERSED) (NAUSEA 01/23/18) Home Med list Apixaban (Eliquis) 5 MG TABLET 1 TAB PO BID A.fib (Reported) Atorvastatin Calcium (Lipitor) 20 MG TABLET 1 TAB PO DAILY cholesterol ( Reported) Clopidogrel Bisulfate (Plavix) 75 MG TABLET 1 TAB PO DAILY heart health ( Reported) Diltiazem HCl (Diltiazem 12HR ER) 120 MG CAP.ER.12H 1 CAP PO DAILY A.fib ( Reported) Hydrochlorothiazide 12.5 MG TABLET 1 TAB PO DAILY htn (Reported) Losartan Potassium (Cozaar) 50 MG TABLET 1 TAB PO DAILY htn (Reported) Metoprolol Succ XL (Toprol XL) 25 MG TAB 3 TAB PO DAILY Heart (Reported) Montelukast Sodium (Singulair) 10 MG TABLET 1 TAB PO DAILY asthma (Reported) Niacin (Niaspan) 500 MG TAB.ER.24H 1.5 TAB PO QPM cholesterol (Reported) Sertraline HCl (Zoloft) 100 MG TABLET 1.5 TAB PO DAILY mental health ( Reported) Compliance With Home Meds: GOOD Past History Medical History Blood Transfusion Hx: No Cardiovascular: hypertension, hyperlipidemia, 5 STENTS Gastrointestinal: abdominal wall hernia Musculoskeletal: HERNIA Endocrine: diabetes History of MRSA: No History of VRE: No History of CDIFF: No Isolation History: Standard Influenza Vaccine: 08/19/17 Surgical History Pertinent Surgical History: cholecystectomy Past Family/Social History Family History Relations & Conditions if any SISTER FHx: diabetes mellitus MOTHER Heart attack Psychosocial History Where Do You Live? Home Services at Home None Smoking Status: Former Smoker Review of Systems Review of Systems: Constitutional: No fever, sweats or weight loss ENMT: No sore throat Cardiovascular: No chest pain, palpitations or leg swelling Respiratory: No shortness of breath, cough, or sputum or dyspnea on exertion GI: occas GERD no bleeding per rectum : No dysuria or hematuria Musculoskeletal: No new muscle weakness, bone or joint pain Skin / Breast: No jaundice, rashes or itching Psychiatric: No history of drug or alcohol abuse there is a history of depression / anxiety Hematologic / lymphatic system: On anticoagulants but no underlying problems with excessive bleeding, bruising, or blood clots Exam & Diagnostic Data Last 24 Hrs of Vital Signs/I&O I reviewed Vital Signs Date Time Temp Pulse Resp B/P B/P Pulse O2 O2 Flow FiO2 Mean Ox Delivery Rate 01/23 1550 120 140/70 01/23 1508 120 140/70 01/23 1506 120 140/70 01/23 1348 99.1 103 20 156/78 91 Room Air 01/23 1240 99.1 90 20 128/80 94 Room Air 01/23 1100 Room Air 01/23 0610 99.5 94 20 130/62 94 Room Air 01/23 0602 Room Air 01/23 0544 98.4 93 20 166/72 96 Nasal Cannula 01/23 0212 96 Room Air 01/23 0202 97.5 98 18 186/88 96 Room Air I reviewed Intake & Output 01/23 1600 01/23 0800 01/23 0000 Intake Total 400 0 Output Total 550 Balance -150 2049 Intake, IV 400 2049 Intake, Oral 0 Number 0 Bowel Movements Output, Urine 550 Patient 217 lb Weight Weight Reported by Patient Measurement Method Physical Exam: Constitutional: pleasant, no acute distress, conversant Eyes: sclera anicteric ENMT: ears and nose atraumatic, moist mucous membranes, good dentition, no lip lesions Neck: Supple, trachea is midline, no cervical or supraclavicular adenopathy and no palpable thyromegaly Cardiovascular: S1, S2, no murmurs, no peripheral edema Respiratory: clear to auscultation with normal respiratory effort and no intercostal retractions GI: abdomen soft, nontender, firm nonreducible midline epigastric hernia no erythema minimally tender overlying open cholecystectomy scar smaller palpable mass at the umbilicus, no rebound no guarding. Extremities / lymphatics: symmetrically warm, free range of motion no peripheral edema, no cervical, supraclavicular, axillary, or inguinal adenopathy Musculoskeletal: Did not evaluate gait and station, no digital cyanosis, good muscle strength and tone no atrophy, motor grossly 5 out of 5 throughout Skin: no jaundice, no rashes warm, nondiaphoretic, no areas of erythema or induration Psychiatric: mood and affect are appropriate and alert and oriented to person place and time Last 24 Hrs of Labs/Dileep: I reviewed Laboratory Tests 01/23/18 1020: Anion Gap 13, Estimated GFR 50 L, BUN/Creatinine Ratio 24.5 01/23/18 0840: Urinalysis LIGHT H, Urine Color YEL, Urine Clarity CLEAR, Urine pH 7.0, Ur Specific [place] 1.020, Urine Protein 100 H, Urine Ketones 15 H, Urine Nitrite NEG, Urine Bilirubin NEG, Urine Urobilinogen 0.2, Ur Leukocyte Esterase NEG, Ur Microscopic SEDIMENT EXAMINED, Urine RBC 5-10 H, Urine WBC 5-10 H, Ur Epithelial Cells MOD H, Urine Bacteria RARE H, Urine Mucus FEW, Urine Hemoglobin SMALL H, Urine Glucose >=1000 H 01/23/18 0515: Lactic Acid 1.8 01/23/18 0209: Anion Gap 19 H, Estimated GFR 55 L, BUN/Creatinine Ratio 34.0 H, Glucose 344 H, Lactic Acid 2.6 H, Calcium 9.8, Total Bilirubin 0.9, Direct Bilirubin 0.5 H , AST 30, ALT 34, Alkaline Phosphatase 103, Troponin I 0.02, Total Protein 8.2, Albumin 4.7, Amylase 43, Lipase 136, CBC w Diff NO MAN DIFF REQ, RBC 4.72, MCV 89.9, MCH 30.6, MCHC 34.0, RDW 13.2, MPV 7.9, Gran % 87.4 H, Lymphocytes % 9.4 L, Monocytes % 2.5, Eosinophils % 0, Basophils % 0.7, Absolute Granulocytes 12.6 H, Absolute Lymphocytes 1.4, Absolute Monocytes 0.4, Absolute Eosinophils 0, Absolute Basophils 0.1, Acetone Level NEGATIVE Microbiology 01/23 714 STOOL: Clostridium difficile Toxin A & B - COLB 01/23 0209 NASOPHARYN: Influenza Virus A & B Rapid Smear - COMP Assessment/Plan Assessment/Plan: Studies I reviewed the CT scan from last night on PACS myself that shows 2 ventral incisional hernias one at the umbilicus smaller just incarcerated fat the larger epigastric one contains mostly fat but also about half of her stomach and proximal duodenum, and as the stomach traverses the defect (approx 7 cm) it' s narrowed to about 2 cm. Impression this patient with heart disease and atrial fibrillation on anticoagulants who has been vomiting for a few days and has elements of contraction alkalosis, which already seems to be responding to IV hydration but she also has incarcerated stomach in this hernia chronically but there has been an acute change which has caused this episode, she is still nauseous if she vomits will place NG tube but she needs urgent surgery I feel she will not be able to eat otherwise, there are no signs of bleeding or ischemia but that's a consideration too, because of the vomiting she is probably already missed 2 days of the Plavix and Eiquis, which helps but her situation is too urgent and we will have to operate with some increased risk of bleeding, so she is hemodynamically stable no signs of infection or bleeding so there is a little time to optimize, I would continue hydration have cardiology see her given her history and plan to take to the operating room tomorrow morning for an open mesh repair of this hernia, hopefully the stomach would not be strictured, we will repair the smaller hernia lower down as well. We also discussed the potential risks, benefits and alternatives to the procedure and surgery in general, issues that included but were not limited to, anesthetic risk, hemorrhage requiring transfusion, the risk of transfusion itself, infection, heart attack, stroke, . I explained the importance of history of smoking as it pertains to surgery, especially with general anesthesia and healing. As Ranked By This Provider Problem List: 1. Incisional hernia with obstruction 2. Coronary artery disease 3. Atrial fibrillation 4. Chloride-responsive metabolic alkalosis 5. Vomiting
--- NOTE | 2018-01-23 17:41 | PN- Att Addend ---
Attending Addendum Attending Brief Note S: The patient was seen with house staff- c/o nausea, having difficulty taking po meds. Denies significant abdominal pain, dyspnea, or chest pain. O: VS: Vital Signs Date Time Temp Pulse Resp B/P B/P Pulse O2 O2 Flow FiO2 Mean Ox Delivery Rate 01/23 1550 120 140/70 / 1508 120 140/70 / 1506 120 140/70 / 1348 99.1 103 20 156/78 91 Room Air 03/ 1240 99.1 90 20 128/80 94 Room Air 03/ 1100 Room Air / 0610 99.5 94 20 130/62 94 Room Air / 0602 Room Air / 0544 98.4 93 20 166/72 96 Nasal Cannula / 0212 96 Room Air / 0202 97.5 98 18 186/88 96 Room Air Intake & Output / 1600 01/23 0800 / 0000 Intake Total 400 2050 Output Total 550 Balance -150 2050 Intake, IV 400 2050 Intake, Oral 0 Number 0 Bowel Movements Output, Urine 550 Patient 217 lb Weight Weight Reported by Patient Measurement Method Current Medications Sig/Fatimah Start time Last Medication Dose Route Stop Time Status Admin Acetaminophen 650 MG Q6P PRN 01/23 0630 AC PO Albuterol Sulfate 2 PUF Q4P PRN 01/23 1115 AC INH Apixaban 5 MG BID 01/23 1000 AC PO Atorvastatin Calcium 20 MG 1700 01/23 1700 AC PO Clopidogrel Bisulfate 75 MG DAILY 01/23 1000 AC PO Dextrose/Sodium 1,000 ML Q20H 01/23 0800 DC 01/23 [place] 0818 Diltiazem HCl 120 MG DAILY 01/23 1000 AC 01/23 PO 1506 Famotidine 20 MG ONCE ONE 01/23 0215 DC / IV 01/23 0216 0214 Famotidine 0 .STK-MED ONE 01/23 0214 DC IV Hydrochlorothiazide 12.5 MG DAILY 01/23 1000 AC 01/23 PO 1507 Insulin Aspart 0 Q4 01/23 1400 AC 01/23 SC 1501 Insulin Aspart 0 TIDAC 01/23 0800 CAN SC Insulin Detemir 8 UNITS DAILY 01/24 1000 AC SC Insulin Detemir 15 UNITS DAILY 01/23 1000 DC 01/23 SC 1233 Insulin Human Regular 0 Q6 01/23 0745 DC 01/23 SC 1233 Losartan Potassium 50 MG DAILY 01/23 1000 AC 01/23 PO 1506 Metoprolol Succinate 75 MG DAILY 01/23 1000 AC 01/23 PO 1508 Metoprolol Tartrate 5 MG ONCE ONE 01/23 1445 DC IV 01/23 1446 Montelukast Sodium 10 MG 2200 01/23 2200 AC PO Nicotinic Acid 750 MG WITH MEALS 01/23 0800 AC PO Ondansetron HCl 4 MG ONCE ONE 01/23 0215 DC 01/23 IV 01/23 0216 0214 Ondansetron HCl 0 .STK-MED ONE 01/23 0214 DC .ROUTE Oxycodone/ 2 TAB Q6P PRN 01/23 0630 AC Acetaminophen PO Potassium Chloride 20 MEQ Q10H 01/23 1400 AC 01/23 Dextrose/Sodium 1,000 ML IV 1530 Chloride Potassium Chloride 20 MEQ 01/23 1345 CAN IV Promethazine HCl 25 MG Q4P PRN 01/23 0630 DC 01/23 IV 01/30 0629 1045 Promethazine HCl 12.5 MG ONCE ONE 01/23 0615 DC 01/23 IV 01/23 0616 0619 Promethazine HCl 12.5 MG ONCE ONE 01/23 0345 DC 01/23 IV 01/23 0346 0336 Promethazine HCl 0 .STK-MED ONE 01/23 0249 DC .ROUTE Sertraline HCl 150 MG DAILY 01/23 1000 AC 01/23 PO 1513 Sodium Chloride 1,000 ML BOLUS ONE 01/23 0300 DC 01/23 IV 01/23 0359 0459 Sodium Chloride 1,000 ML BOLUS ONE 01/23 0215 DC 01/23 IV 01/23 0314 0214 Trimethobenzamide HCl 200 MG 4 TIMES/DAY PRN 01/23 1400 AC 01/23 IM 1320 Physical Exam: Chest: diminished BS at bases, clear Cor: Reg rate, sl irreg, nl S1, S2 Abd: Distended, no bowel sounds at time of my exam, no significant tenderness, + ventral hernia (large) Ext: no edema, pulses 2+ Labs: Laboratory Tests 01/23/18 1020: Anion Gap 13, Estimated GFR 50 L, BUN/Creatinine Ratio 24.5 01/23/18 0840: Urinalysis LIGHT H, Urine Color YEL, Urine Clarity CLEAR, Urine pH 7.0, Ur Specific [place] 1.020, Urine Protein 100 H, Urine Ketones 15 H, Urine Nitrite NEG, Urine Bilirubin NEG, Urine Urobilinogen 0.2, Ur Leukocyte Esterase NEG, Ur Microscopic SEDIMENT EXAMINED, Urine RBC 5-10 H, Urine WBC 5-10 H, Ur Epithelial Cells MOD H, Urine Bacteria RARE H, Urine Mucus FEW, Urine Hemoglobin SMALL H, Urine Glucose >=1000 H 01/23/18 0515: Lactic Acid 1.8 01/23/18 0209: Anion Gap 19 H, Estimated GFR 55 L, BUN/Creatinine Ratio 34.0 H, Glucose 344 H, Lactic Acid 2.6 H, Calcium 9.8, Total Bilirubin 0.9, Direct Bilirubin 0.5 H , AST 30, ALT 34, Alkaline Phosphatase 103, Troponin I 0.02, Total Protein 8.2, Albumin 4.7, Amylase 43, Lipase 136, CBC w Diff NO MAN DIFF REQ, RBC 4.72, MCV 89.9, MCH 30.6, MCHC 34.0, RDW 13.2, MPV 7.9, Gran % 87.4 H, Lymphocytes % 9.4 L, Monocytes % 2.5, Eosinophils % 0, Basophils % 0.7, Absolute Granulocytes 12.6 H, Absolute Lymphocytes 1.4, Absolute Monocytes 0.4, Absolute Eosinophils 0, Absolute Basophils 0.1, Acetone Level NEGATIVE Microbiology 01/23 714 STOOL: Clostridium difficile Toxin A & B - COLB 01/23 209 NASOPHARYN: Influenza Virus A & B Rapid Smear - COMP Impression/Plan: #Nausea/Vomiting- appreciate surgical input- ? obstructed hernia. Needs urgent surgery per surgical consult. Plan: As per surgery- hernia repair wiht mesh planned for tomorrow. Hold Apixaban. #CAD/afib- h/o CAD. Last stress test 2 years ago and was negative. No ischemic symptoms with usual activities. Has some risk with surgery, however is urgent surgery. RCRI 3. Plan: Cardiology consult- Dr. Diaz-agrees with plan for surgery. Will optimize patient for surgery. Post operatively will need telemetry monitoring for IV meds/beta ramona. #HTN- BP OK at present. Plan: May need IV Metoprolol/Enalapril if unable to take po. #DM2- sugars as noted. Plan: Endocrinology input, sliding scale insulin/glucoscans. #HL- on Atorvasatatin. Plan: Continue Atorvasatin
[2018-01-23 22:02] VITALS: BP 152/66
[2018-01-24 05:07] VITALS: BP 153/82
[2018-01-24 06:59] VITALS: BP 168/98
--- NOTE | 2018-01-24 07:13 | PN- Housestaff ---
Adele RUBIN,Yeison 01/24/18711: Subjective Follow-up For: Large, chronic ventral hernia with gastric outlet obstruction Subjective: Patient was seen and examined at bedside. She had no acute events overnight. She is anxious about her upcoming surgery, and vomited once this morning. She complains of nausea but otherwise has no complaints. She denies any chest pain, chest discomfort, shortness of breath, fever, chills. Review of Systems Constitutional: Denies: chills, fever. Cardiovascular: Denies: chest pain, orthopena, palpitations, peripheral edema. Respiratory: Denies: cough, short of breath. Gastrointestinal: Reports: nausea, vomiting. Denies: abdominal pain, melena, bloody stool. Genitourinary: Reports: no symptoms. Musculoskeletal: Reports: no symptoms. Objective Last 24 Hrs of Vital Signs/I&O Vital Signs Date Time Temp Pulse Resp B/P B/P Pulse O2 O2 Flow FiO2 Mean Ox Delivery Rate 01/24 0659 98.9 128 18 168/98 92 01/24 0507 88 153/82 01/23 2202 98.5 113 19 152/66 90 Room Air 01/23 1550 120 140/70 01/23 1508 120 140/70 01/23 1506 120 140/70 01/23 1348 99.1 103 20 156/78 91 Room Air 01/23 1240 99.1 90 20 128/80 94 Room Air 01/23 1100 Room Air Intake & Output 01/24 0800 01/24 0000 01/23 1600 Intake Total 800 810 400 Output Total 450 600 550 Balance 350 210 -150 Intake, IV 800 810 400 Intake, Oral 0 0 0 Number 0 0 0 Bowel Movements Output, 50 Emesis Output, Urine 400 600 550 Physical Exam General Appearance: Alert, Oriented X3, Cooperative, No Acute Distress Skin Temp/Moisture Exam: Warm/Dry Cardiovascular: Normal S1, Normal S2, tachycardic, HR 100s, regular rhythm Lungs: Clear to Auscultation, Normal Air Movement Abdomen: large nonreducible ventral hernia, smaller umbilical hernia, hypoactive bowel sounds Neurological: Normal Speech, Normal Tone, Sensation Intact Extremities: No Clubbing, No Cyanosis, No Edema Current Medications: Current Medications Sig/Fatimah Start time Last Medication Dose Route Stop Time Status Admin Acetaminophen 650 MG Q6P PRN 01/23 0630 AC PO Albuterol Sulfate 2 PUF Q4P PRN 01/23 1115 AC INH Apixaban 5 MG BID 01/23 1000 DC PO Atorvastatin Calcium 20 MG 1700 01/23 1700 AC PO Clopidogrel Bisulfate 75 MG DAILY 01/23 1000 DC PO Dextrose/Sodium 1,000 ML Q20H 01/23 0800 DC 01/23 [place] 0818 Diltiazem HCl 120 MG DAILY 01/23 1000 AC 01/23 PO 1506 Hydrochlorothiazide 12.5 MG DAILY 01/23 1000 AC 01/23 PO 1507 Insulin Aspart 0 Q4 01/24 1000 AC SC Insulin Aspart 0 Q4 01/23 1400 DC 01/24 SC 0246 Insulin Aspart 0 TIDAC 01/23 0800 CAN SC Insulin Detemir 8 UNITS DAILY 01/24 1000 AC SC Insulin Detemir 15 UNITS DAILY 01/23 1000 DC 01/23 SC 1233 Insulin Human Regular 0 Q6 01/24 1200 CAN SC Insulin Human Regular 0 Q6 01/23 0745 DC 01/23 SC 1233 Losartan Potassium 50 MG DAILY 01/23 1000 AC 01/23 PO 1506 Metoprolol Succinate 75 MG DAILY 01/23 1000 AC 01/23 PO 1508 Metoprolol Tartrate 5 MG ONCE ONE 01/23 1445 DC IV 01/23 1446 Montelukast Sodium 10 MG 2200 01/23 2200 AC PO Nicotinic Acid 750 MG WITH MEALS 01/23 0800 AC PO Oxycodone/ 2 TAB Q6P PRN 01/23 0630 AC Acetaminophen PO Potassium Chloride 20 MEQ Q10H 01/23 1400 AC 01/24 Dextrose/Sodium 1,000 ML IV 0115 Chloride Potassium Chloride 20 MEQ 01/23 1345 CAN IV Promethazine HCl 25 MG Q4P PRN 01/23 0630 DC 01/23 IV 01/30 0629 1045 Sertraline HCl 150 MG DAILY 01/23 1000 AC 01/23 PO 1513 Trimethobenzamide HCl 200 MG 4 TIMES/DAY PRN 01/23 1400 AC 01/23 IM 2012 Last 24 Hrs of Lab/Dileep Results Last 24 Hrs of Labs/Mics: Laboratory Tests 01/23/18 1020: Anion Gap 13, Estimated GFR 50 L, BUN/Creatinine Ratio 24.5 01/23/18 0840: Urinalysis LIGHT H, Urine Color YEL, Urine Clarity CLEAR, Urine pH 7.0, Ur Specific [place] 1.020, Urine Protein 100 H, Urine Ketones 15 H, Urine Nitrite NEG, Urine Bilirubin NEG, Urine Urobilinogen 0.2, Ur Leukocyte Esterase NEG, Ur Microscopic SEDIMENT EXAMINED, Urine RBC 5-10 H, Urine WBC 5-10 H, Ur Epithelial Cells MOD H, Urine Bacteria RARE H, Urine Mucus FEW, Urine Hemoglobin SMALL H, Urine Glucose >=1000 H Microbiology 01/23 0714 STOOL: Clostridium difficile Toxin A & B - COLB Assessment/Plan Assessment: Patient is a 67-year-old female with a PMH significant for ACS status post 5 stents placed approximately 3 years ago, chronic ventral hernia present for 40 years, paroxysmal A. fib, diabetes, asthma, bladder cancer, 100 pack year smoking history quit 4 years ago who presented to the [facility] ED with intractable nausea and vomiting for approximately 3 days. Patient also has chronic diarrhea which had increased in frequency. CT imaging of her abdomen showed a large ventral hernia containing the stomach was significant narrowing. Presentation patient was hyperglycemic and had hypochloremic metabolic acidosis. patient was transfered to telemetry post-op for cardiac monitoring. Cardiology consult was placed with Dr. Cisneros. #Ventral hernia containing motion of the stomach with significant narrowing Patient to go to the OR today for surgical hernia repair. Of note this morning patient was tachycardic, stat EKG was done which revealed sinus tachycardia HR 108, patient admitted to being nervous at that time. She is also mildly hypertensive. These values were both discussed with anesthesia by the resident Dr. Ribeiro. -Follow-up postop, may need to transfer to telemetry if she cannot tolerate her antihypertensive medication #Hyperglycemia Patient is being followed by Dr. Dominguez endocrinology. Fingerstick glucose readings over the last 24 hours ranged from [id number]. -Appreciate endocrinology recommendations -Continue Levemir subcutaneous 8 units twice a day -Follow-up endocrinology recommendations for by mouth sliding scale postoperatively #Electrolyte abnormalities hypochloremic metabolic acidosis, improving Patient had intractable nausea and vomiting for several days. -She was hydrated with IV D5 normal saline with KCl Diet: Nothing by mouth for or today, we'll also restart diabetic diet when cleared by surgery DVT prophylaxis: ALPS, held pharmacologic for surgery. Will restart Eliquis postoperatively CODE STATUS: Full code Problem List: 1. Gastric outflow obstruction Pain Ratin Pain Location: none Pain Goal: Remain pain free Pain Plan: pain pathway Tomorrow's Labs & Rationales: cbc, bep Miranda RUBIN,Noradeborah 01/24/18 1344: Attending MD Review Statement Attending Statement Attending MD Statement: examined this patient, discuss w/resident/PA/COMPUTER INFORMATION SYSTEMS INSTRUCTOR, agreed w/resident/PA/COMPUTER INFORMATION SYSTEMS INSTRUCTOR, reviewed EMR data (avail) Attending Assessment/Plan: 67F PMH paroxysmal atrial fibrillation, CAD, long standing ventral hernia admitted for intractable nausea and vomiting, found to have gastric obstruction, going to OR today for repair. Will follow up surgery recommendations post-op, transfer to telemetry floor for 24 hours to monitor after extensive procedure, may require IV medications for BP and rate control, defer to surgery on anti- coagulation and resumption of oral intake. After taking PO can restart home medications.
[2018-01-24 08:00] VITALS: BP 150/90
[2018-01-24 08:09] LABS: ABSOLUTE BASOPHIL COUNT 0 /CUMM (0.0-0.2); ABSOLUTE EOSINOPHIL COUNT 0.1 /CUMM (0.0-0.7); ABSOLUTE GRANULOCYTE CT 13.5 /CUMM (1.4-6.5); ABSOLUTE LYMPH COUNT 1.9 /CUMM (1.2-3.4); BASOPHIL % 0.2 % (0.0-2.0); EOSINOPHIL % 0.6 % (0-5); GRANULOCYTE % 81.4 % (42.2-75.2); MEAN CORPUSCULAR HGB 30.4 PG (27.0-31.0); MEAN CORPUSCULAR HGB CONC 33.2 G/DL (33.0-37.0); MEAN CORPUSCULAR VOLUME 91.5 FL (81.0-99.0); PLATELET COUNT 324 /CUMM (130-400); RBC DISTRIBUTION WIDTH 13.2 % (11.5-14.5); RED BLOOD CELL CT 4.81 /CUMM (4.20-5.40); WHITE BLOOD CELL COUNT 16.6 /CUMM (4.8-10.8)
[2018-01-24 14:57] VITALS: BP 116/68
--- NOTE | 2018-01-24 16:55 | PN- General Surgery ---
Subjective Subjective: Post op check Awake and alert post op No specific complaints at this time No pain at all, nausea is resolved Objective Vital Signs and I&Os Vital Signs Date Time Temp Pulse Resp B/P B/P Pulse O2 O2 Flow FiO2 Mean Ox Delivery Rate 01/24 1457 98.0 102 20 116/68 93 Nasal Cannula 01/24 0812 108 01/24 0800 130 150/90 01/24 0659 98.9 128 18 168/98 92 01/24 0507 88 153/82 01/23 2202 98.5 113 19 152/66 90 Room Air Intake & Output 01/24 0000 01/23 1600 01/23 0000 Intake Total 800 941 380 6247 Output Total 300 450 600 550 Balance -300 350 210 -150 0 Intake, IV 800 578 764 2132 Intake, Oral 0 0 0 Number 0 0 0 Bowel Movements Output, 50 Emesis Output, Urine 300 400 600 550 Patient 219 lb 217 lb Weight Weight Reported by Patient Measurement Method Physical Exam: Continued tachycardia currently at 102 tele - regular rhythm All other vss General: alert and oriented times three Chest: clear anteriorly bilaterally, RRR Abd: soft, nondistended, no bs appreciated, appropriately tender around incisions Ext: warm, no edema, 2+ dp BLE Wd: dressed, dry lakeisha - about 10cc bloody drainage Current Medications: Current Medications Sig/Fatimah Start time Last Medication Dose Route Stop Time Status Admin Acetaminophen 1,000 MG Q6H 01/24 1300 AC N/A 1 UNIT IV 01/25 0714 Acetaminophen 650 MG Q6P PRN 01/23 0630 AC PO Albuterol Sulfate 2 PUF Q4P PRN 01/23 1115 AC INH Apixaban 5 MG BID 01/23 1000 DC PO Atorvastatin Calcium 20 MG 1700 01/23 1700 AC PO Clindamycin 600 MG IQ8 01/24 1600 AC Dextrose/Water 50 ML IV 01/25 0029 Clopidogrel Bisulfate 75 MG DAILY 01/23 1000 DC PO Dexmedetomidine HCl 200 MCG .STK-MED ONE 01/24 08 DC IV 01/24 08 Diltiazem HCl 120 MG DAILY 01/23 1000 AC 01/23 PO 1506 Fentanyl Citrate 100 MCG .STK-MED ONE 01/24 08 DC IM 01/24 08 Heparin Sodium 5,000 UNIT Q8 01/24 2200 AC (Porcine) SC Hydrochlorothiazide 12.5 MG DAILY 01/23 1000 AC 01/23 PO 1507 Insulin Aspart 0 Q4 01/24 1000 AC SC Insulin Aspart 0 Q4 01/23 1400 DC 01/24 SC 0246 Insulin Detemir 8 UNITS DAILY 01/24 1000 DC SC Insulin Detemir 8 UNITS BID 01/24 1000 AC SC Insulin Human Regular 0 Q6 01/24 1200 CAN SC Losartan Potassium 50 MG DAILY 01/23 1000 AC 01/23 PO 1506 Metoprolol Succinate 75 MG DAILY 01/23 1000 AC 01/23 PO 1508 Midazolam HCl 2 MG .STK-MED ONE 01/24 0806 DC IM 01/24 08 Montelukast Sodium 10 MG 2200 01/23 2200 AC PO Morphine Sulfate 8 MG .STK-MED ONE 01/24 08 DC IM 01/24 08 Nicotinic Acid 750 MG WITH MEALS 01/23 0800 AC PO Oxycodone/ 2 TAB Q6P PRN 01/23 0630 AC Acetaminophen PO Patient Medication 1 ED ONE ONE 01/24 1630 DC Teaching ED 01/24 1631 Potassium Chloride 20 MEQ Q10H 01/23 1400 AC 01/24 Dextrose/Sodium 1,000 ML IV 0115 Chloride Sertraline HCl 150 MG DAILY 01/23 1000 AC 01/23 PO 1513 Trimethobenzamide HCl 200 MG 4 TIMES/DAY PRN 01/23 1400 AC 01/23 IM 2013 Assessment/Plan Assessment/Plan 67yo female with extensive cardiac comorbidities now post op incarcerated ventral hernia - open repair npo/ivf ngt iv meds as needed pain management hep sc/alps for dvt ppx clindamycin for 24 hrs post op all other management per medical team Core Measures Venous Thromboembolism VTE Risk Factors Acute Medical Illness No Mechanical VTE Prophylaxis d/t N/A MechProphylax Ordered No VTE Pharm Prophylaxis d/t NA PharmProphylax ordered
--- NOTE | 2018-01-24 21:35 | Cons- Cardiology ---
General Information and HPI Consulting Request Date of Consult: 01/24/18 Requested By: Carmelina Alvarado MD History of Present Illness: Amelia is a 67 year old female with history of hypertension, diabetes and coronary artery disease. She also carries a history of paroxysmal atrial fibrillation. She presented to [facility] for evaluation of copious vomiting and was discovered to have a gastric outlet obstruction due to a hernia. She went to surgery emergently and now feels improved. At baseline, this patient is minimally active but denies any chest pain, pressure or tightness. She denies shortness of breath at her current level of activity which is a normal to slow walk. Otherwise this patient denies lightheadedness or palpitations. Amelia had a long-standing ventral incisional hernia related to an open cholecystectomy 40 years ago. She also a prior history of myocardial ischemia with placement of five stents. Allergies/Medications Allergies: Coded Allergies: Penicillins (HIVES 01/23/18) midazolam (From VERSED) (NAUSEA 01/23/18) Home Med List: Apixaban (Eliquis) 5 MG TABLET 1 TAB PO BID A.fib (Reported) Atorvastatin Calcium (Lipitor) 20 MG TABLET 1 TAB PO DAILY cholesterol ( Reported) Clopidogrel Bisulfate (Plavix) 75 MG TABLET 1 TAB PO DAILY heart health ( Reported) Diltiazem HCl (Diltiazem 12HR ER) 120 MG CAP.ER.12H 1 CAP PO DAILY A.fib ( Reported) Hydrochlorothiazide 12.5 MG TABLET 1 TAB PO DAILY htn (Reported) Losartan Potassium (Cozaar) 50 MG TABLET 1 TAB PO DAILY htn (Reported) Metoprolol Succ XL (Toprol XL) 25 MG TAB 3 TAB PO DAILY Heart (Reported) Montelukast Sodium (Singulair) 10 MG TABLET 1 TAB PO DAILY asthma (Reported) Niacin (Niaspan) 500 MG TAB.ER.24H 1.5 TAB PO QPM cholesterol (Reported) Sertraline HCl (Zoloft) 100 MG TABLET 1.5 TAB PO DAILY mental health ( Reported) Review of Systems Review of Systems: headache Past History Travel History Traveled to [place] past 21 day No Medical History Blood Transfusion Hx: No Cardiovascular: hypertension, hyperlipidemia, 5 STENTS Gastrointestinal: abdominal wall hernia Musculoskeletal: HERNIA Endocrine: diabetes Surgical History Surgical History: cholecystectomy Family History Relations & Conditions If Any: SISTER FHx: diabetes mellitus MOTHER Heart attack Psychosocial History Where Do You Live? Home Services at Home: None Smoking Status: Former Smoker Exam & Diagnostic Data Vital Signs and I&O Vital Signs Date Time Temp Pulse Resp B/P B/P Pulse O2 O2 Flow FiO2 Mean Ox Delivery Rate 01/24 1457 98.0 102 20 116/68 93 Nasal Cannula 01/24 0812 108 01/24 0800 130 150/90 01/24 0659 98.9 128 18 168/98 92 01/24 0507 88 153/82 01/23 2202 98.5 113 19 152/66 90 Room Air Intake & Output 01/24 1600 01/24 0000 01/23 1600 01/23 0000 Intake Total 800 848 894 1665 Output Total 300 450 600 550 Balance -300 350 210 -150 0 Intake, IV 800 855 554 0373 Intake, Oral 0 0 0 Number 0 0 0 Bowel Movements Output, 50 Emesis Output, Urine 300 400 600 550 Patient 219 lb 217 lb Weight Weight Reported by Patient Measurement Method Physical Exam: General: WD/obese female in NAD; alert and oriented x 3 HEENT: NC/AT, PERRL, EOMI Neck: no JVD, no carotid bruit Heart: RRR w/o mumrur Lungs: clear bilaterally Abdomen: soft, NT, +ve bowel sounds Extremities: no edema Assessment/Plan Assessment/Plan * This patient has known coronary artery disease but tolerated her surgery well without any symptoms of myocardial ischemia or decompensated congestive heart failure. She is minimally tachycardic which is likely physiologic due to mild dehydration from vomiting prior to her admission and discomfort. The patient should restart Eliquis tomorrow if considered safe from a surgical standpoint and if no further procedures are anticipated. Consult Acknowledgment - Thank you for your consult request.
[2018-01-24 23:12] VITALS: BP 118/64
--- NOTE | 2018-01-25 00:45 | Event Note ---
Event Note Event Note: S: Patient tachy to 150-170s B: Large, chronic ventral hernia with gastric outlet obstruction A/R: Pt was given IVF fluid 500ml bolus as she appeared slightly dehydrated. Remained tachycardic at 150s and 5mg IV lopressor was given. Patient continued to be tachy in the 140s-160s. VSS and IV diltiazem 5mg was given. HR 130-140s. Review of the record revealed that the patient did not get her oral meds which included toprolol xl 75. HR currently 100-110s around 6AM. Instructed nurse to give toprolol early @ 6am however was told toprolol is not crushable to the G-tube. Informed primary team of this issue this AM.
[2018-01-25 06:25] VITALS: BP 110/64
--- NOTE | 2018-01-25 07:25 | PN- Housestaff ---
Wali RUBIN,[facility] 01/25/18 0724: Subjective Follow-up For: Incarcerated ventral hernia status post open repair Tele-Events Since Last Visit: Sinus tachycardia Heart rate 109 to 171 Subjective: Patient is resting comfortably in bed, denies any pain at the surgical site, nausea or vomiting. Requesting some ice chips. NG tube in place. Review of Systems Constitutional: Reports: no symptoms. EENTM: Reports: no symptoms. Cardiovascular: Reports: no symptoms. Respiratory: Reports: no symptoms. Gastrointestinal: Reports: no symptoms. Genitourinary: Reports: no symptoms. Musculoskeletal: Reports: no symptoms. Skin: Reports: no symptoms. Neurological/Psychological: Reports: no symptoms. Hematologic/Endocrine: Reports: no symptoms. Immunologic/Allergic: Reports: no symptoms. Objective Last 24 Hrs of Vital Signs/I&O Vital Signs Date Time Temp Pulse Resp B/P B/P Pulse O2 O2 Flow FiO2 Mean Ox Delivery Rate 01/25 1448 98.2 100 18 120/66 93 01/25 1108 103 126/70 01/25 1108 103 126/64 01/25 0852 96 Nasal 2.0L Cannula 01/25 0625 98.0 109 23 110/64 95 01/25 0446 151 136/60 01/25 0237 133 128/62 01/25 0000 Nasal 2.0L Cannula 01/24 2312 98.3 97 18 118/64 94 Nasal Cannula Intake & Output 01/25 1600 01/25 0800 01/25 0000 Intake Total 600 900 Output Total 470 520 670 Balance 130 380 -670 Intake, IV 200 900 Intake, Oral 400 0 Output, 20 20 20 Drainage Output, 150 300 500 Gastric Drainage Output, Urine 300 200 150 Patient 232 lb 232 lb Weight Physical Exam General Appearance: Alert, Oriented X3, Cooperative, No Acute Distress Skin: No Rashes, No Breakdown Cardiovascular: Regular Rate, Normal S1, Normal S2 Lungs: Normal Air Movement Abdomen: Soft, No Tenderness, Incision Site covered with dressing, minimal output from surgical drain. Extremities: No Clubbing, No Cyanosis, No Edema Current Medications: Current Medications Sig/Fatimah Start time Last Medication Dose Route Stop Time Status Admin Acetaminophen 1,000 MG Q6H 01/25 1300 DC 01/25 N/A 1 UNIT IV 01/25 1314 1127 Acetaminophen 650 MG Q6P PRN 01/25 1100 AC PO Acetaminophen 1,000 MG Q6H 01/24 1300 DC 01/25 N/A 1 UNIT IV 01/25 0714 0610 Acetaminophen 650 MG Q6P PRN 01/23 0630 DC PO Albuterol Sulfate 2 PUF Q4P PRN 01/23 1115 AC INH Apixaban 5 MG BID 01/25 2200 AC PO Atorvastatin Calcium 20 MG 1700 01/25 1700 AC PO Atorvastatin Calcium 20 MG 1700 01/23 1700 DC 01/24 PO 1700 Clindamycin 600 MG IQ8 01/24 1600 DC 01/25 Dextrose/Water 50 ML IV 01/25 0029 0030 Dextrose/Sodium 1,000 ML Q20H 01/24 1815 DC 01/25 Chloride IV 0219 Diltiazem HCl 120 MG DAILY 01/25 1100 AC 01/25 PO 1125 Diltiazem HCl 5 MG ONCE PRN 01/25 0915 DC IV 01/25 1800 Diltiazem HCl 5 MG ONCE ONE 01/25 0445 DC 01/25 IV 01/25 0446 0446 Diltiazem HCl 120 MG DAILY 01/23 1000 DC 01/23 PO 1506 Heparin Sodium 5,000 UNIT Q8 01/24 2200 AC 01/25 (Porcine) SC 01/25 2159 0613 Hydrochlorothiazide 12.5 MG DAILY 01/23 1000 DC 01/23 PO 1507 Insulin Aspart 0 TIDAC/HS 01/25 1700 AC SC Insulin Aspart 0 Q4 01/24 1000 DC 01/25 SC 1110 Insulin Detemir 8 UNITS BID 01/24 1000 AC 01/25 SC 1110 Losartan Potassium 50 MG DAILY 01/25 1100 AC 01/25 PO 1108 Losartan Potassium 50 MG DAILY 01/23 1000 DC 01/23 PO 1506 Metoprolol Succinate 75 MG DAILY 01/25 1100 AC 01/25 PO 1108 Metoprolol Succinate 75 MG DAILY 01/23 1000 DC 01/23 PO 1508 Metoprolol Tartrate 5 MG Q8 01/25 0915 DC IV Metoprolol Tartrate 5 MG ONCE ONE 01/25 0215 DC 01/25 IV 01/25 0216 0237 Metoprolol Tartrate 5 MG ONCE ONE 01/25 0030 CAN IV 01/25 0031 Montelukast Sodium 10 MG 2200 01/25 2200 AC PO Montelukast Sodium 10 MG 2200 01/23 2200 DC 01/24 PO 2200 Nicotinic Acid 750 MG WITH MEALS 01/25 1200 AC PO Nicotinic Acid 750 MG WITH MEALS 01/23 0800 DC 01/24 PO 1700 Oxycodone/ 2 TAB Q6P PRN 01/25 1100 AC Acetaminophen PO Oxycodone/ 2 TAB Q6P PRN 01/23 0630 DC Acetaminophen PO Patient Medication 1 ED ONE ONE 01/24 1630 DC Teaching ED 01/24 1631 Potassium Chloride 20 MEQ Q10H 01/23 1400 DC 01/24 Dextrose/Sodium 1,000 ML IV 0115 Chloride Sertraline HCl 150 MG DAILY 01/25 1100 AC 01/25 PO 1124 Sertraline HCl 150 MG DAILY 01/23 1000 DC 01/23 PO 1513 Sodium Chloride 500 ML BOLUS ONE 01/25 0045 DC 01/25 IV 01/25 0144 0055 Trimethobenzamide HCl 200 MG 4 TIMES/DAY PRN 01/23 1400 AC 01/23 IM 2012 Last 24 Hrs of Lab/Dileep Results Last 24 Hrs of Labs/Mics: Laboratory Tests 01/25/18 0620: Anion Gap 9, Estimated GFR 50 L, BUN/Creatinine Ratio 23.6, Magnesium 1.5 L, CBC w Diff NO MAN DIFF REQ, RBC 4.10 L, MCV 91.4, MCH 30.4, MCHC 33.2, RDW 13.4 , MPV 7.8, Gran % 75.5 H, Lymphocytes % 11.7 L, Monocytes % 9.9 H, Eosinophils % 2.6, Basophils % 0.3, Absolute Granulocytes 8.0 H, Absolute Lymphocytes 1.2, Absolute Monocytes 1.1 H, Absolute Eosinophils 0.3, Absolute Basophils 0 01/25/18 0055: Troponin I 0.02 Assessment/Plan Assessment: Patient is a 67-year-old female with a PMH significant for ACS status post 5 stents placed approximately 3 years ago, chronic ventral hernia present for 40 years, paroxysmal A. fib, diabetes, asthma, bladder cancer, 100 pack year smoking history quit 4 years ago who presented to the [facility] ED with intractable nausea and vomiting for approximately 3 days. Probelm List - Incarcerated ventral hernia status post open repair - Sinus tachycardia - Hyperglycemia - History of atrial fibrillation on Eliquis and CAD status post 5 stents placement - Postop day # 1. - Per Dr. Real OK to remove [place] tube, Peterson, D/C IV fluids and start the patient on clear liquid diet diet and resume PO medication. Can also start Eliquis today. - Patient was tachycardic to 170s last night but because she missed her dose of metoprolol. Heart rate below 110 after she received 1 dose of IV Lopressor 5 mg and 1 dose of IV diltiazem 5 mg. We will continue to monitor on telemetry and continue metoprolol and diltiazem. - Continue to hold hydrochlorothiazide. - Blood sugar levels between 214 - 298 for the past 24 hours. We'll follow endocrinology recommendations. - Patient had a production level of 3.3 and mag of 1.5 this morning, we will replete and repeat labs in a.m. - White blood cell count trended down to 10.6. DVT prophylaxis; Eliquis Patient is full code Problem List: 1. Atrial fibrillation 2. Incarcerated ventral hernia Pain Ratin Pain Location: Abdomen Pain Goal: Remain pain free Pain Plan: Pain Pathway Tomorrow's Labs & Rationales: BEP(hypokalemia), Mag(hypomagnesemia) Carmelina Alvarado MD 01/25/18 1231: Attending MD Review Statement Attending Statement Attending MD Statement: examined this patient, discuss w/resident/PA/STUCCO APPLICATOR, agreed w/resident/PA/STUCCO APPLICATOR, reviewed EMR data (avail), discussed with nursing, discussed with case mgmt, amended to note Attending Assessment/Plan: Patient seen and examined. Chart reviewed. I did discuss the case with patient 's Surgeon Luiz Mckay MD. Overnight events noted. Patient is currently lying comfortably in bed not in any acute distress. Denies chest pain or shortness of breath. Denies palpitations. Denies any nausea. Denies abdominal pain. She continues to have significant NG tube output. Abdomen is nondistended, soft and nontender. Bowel sounds are hypoactive. Surgical is intact. Surgical drain remains in place with very mild serosanguineous output. She has no peripheral edema. Problems: 1. Supraventricular tachycardia. 2. Coronary artery disease status post 5 stent placement in the past. 3. Atrial fibrillation on anticoagulation with Eliquis. 4. Insulin-dependent diabetes mellitus. 5. Postop day 1 open mesh repair of 2 separate incarcerated ventral hernias. Plan: -Patient was seen by the general surgeon today. Recommendations are to discontinue NG tube and advised patient to clear liquid diet. -Resume cough overall medication regimen. -Hold off hydrochlorothiazide for now. -Monitor blood glucose levels closely. -Follow cardiology recommendations. -Follow-up with the cardiology service regarding resuming oral anticoagulation therapy. -Mobilize patient as tolerated.
--- NOTE | 2018-01-25 07:54 | PN- Diabetes ---
Assessment/Plan Diabetes Assessment: Patient underwent surgery yesterday for repair of a large ventral hernia with insertion of a mesh. At the present time she is sedated on pain medication. She is on IV fluids with D5 half-normal saline at 50 cc/h. she has known atrial fibrillation and had a rapid ventricular rate last night. Her heart rate is in better control this morning. While n.p.o. the patient is on Levemir 8 units twice a day as well as sliding scale NovoLog every 4 hours. Her most recent blood sugar was 214. Plan: Suggest continue the present insulin regimen. Continue IV fluids and add some potassium to the IV. The patient's IV fluid should be D5 half-normal saline +20 mEq KCl at 50 cc/h. Restart Eliquis as recommended by Dr. Cisneros after checking with surgery. Objective Last 24 Hrs of Vital Signs/I&O Vital Signs Date Time Temp Pulse Resp B/P B/P Pulse O2 O2 Flow FiO2 Mean Ox Delivery Rate 01/25 625 98.0 109 23 110/64 95 01/256 151 136/60 01/25 0237 133 128/62 01/25 0000 Nasal 2.0L Cannula 01/25 2312 98.3 97 18 118/64 94 Nasal Cannula 01/24 1457 98.0 102 20 116/68 93 Nasal Cannula 01/25 812 108 01/25 800 130 150/90 Intake & Output 01/25 0000 01/24 1600 Intake Total Output Total 200 670 300 Balance -200 -670 -300 Output, 20 Drainage Output, 500 Gastric Drainage Output, Urine 200 150 300 Patient 232 lb Weight Vital Signs Date Time Temp Pulse Resp B/P B/P Pulse O2 O2 Flow FiO2 Mean Ox Delivery Rate 01/25 625 98.0 109 23 110/64 95 01/25 0446 151 136/60 01/25 0237 133 128/62 03/ 0000 Nasal 2.0L Cannula 01/25 2312 98.3 97 18 118/64 94 Nasal Cannula 01/247 98.0 102 20 116/68 93 Nasal Cannula 01/25 0812 108 01/24 0800 130 150/90 Intake & Output 01/26 800 03/ 0000 01/24 1600 Intake Total Output Total 200 670 300 Balance -200 -670 -300 Output, 20 Drainage Output, 500 Gastric Drainage Output, Urine 200 150 300 Patient 232 lb Weight Physical Exam General Appearance: sedated Head: normal appearance Respiratory: normal breath sounds Cardiovascular: irregularly irregular Current Medications: Current Medications Sig/Fatimah Start time Last Medication Dose Route Stop Time Status Admin Acetaminophen 1,000 MG Q6H / 1300 DC 01/25 N/A 1 UNIT IV 01/25 0714 0610 Acetaminophen 650 MG Q6P PRN 01/23 0630 AC PO Albuterol Sulfate 2 PUF Q4P PRN 01/23 1115 AC INH Atorvastatin Calcium 20 MG 1700 01/23 1700 AC 03 PO 1700 Clindamycin 600 MG IQ8 01/24 1600 DC 01/25 Dextrose/Water 50 ML IV 01/25 0029 0030 Dexmedetomidine HCl 200 MCG .STK-MED ONE 01/24 0807 DC IV 01/24 0808 Dextrose/Sodium 1,000 ML Q20H 01/24 1815 AC 01/25 Chloride IV 0219 Diltiazem HCl 5 MG ONCE ONE 01/25 0445 DC 01/25 IV 01/25 0446 0446 Diltiazem HCl 120 MG DAILY 01/23 1000 AC 01/23 PO 1506 Fentanyl Citrate 200 MCG .STK-MED ONE 01/24 1108 DC IM 01/24 1109 Fentanyl Citrate 100 MCG .STK-MED ONE 01/24 0806 DC IM 01/24 0807 Heparin Sodium 5,000 UNIT Q8 01/24 2200 AC 01/25 (Porcine) SC 0613 Hydrochlorothiazide 12.5 MG DAILY 01/23 1000 AC 01/23 PO 1507 Insulin Aspart 0 Q4 01/24 1000 AC 01/25 SC 0611 Insulin Detemir 8 UNITS DAILY 01/24 1000 DC SC Insulin Detemir 8 UNITS BID 01/24 1000 AC 01/24 SC 2243 Ketamine HCl 50 MG .STK-MED ONE 01/24 1109 DC IM 01/24 1110 Losartan Potassium 50 MG DAILY 01/23 1000 AC 01/23 PO 1506 Metoprolol Succinate 75 MG DAILY 01/23 1000 AC 01/23 PO 1508 Metoprolol Tartrate 5 MG ONCE ONE 01/25 0215 DC 01/25 IV 01/25 0216 0237 Metoprolol Tartrate 5 MG ONCE ONE 01/25 0030 CAN IV 01/25 0031 Metoprolol Tartrate 5 MG .STK-MED ONE 01/24 1251 DC IV 01/24 1252 Midazolam HCl 2 MG .STK-MED ONE 01/24 0806 DC IM 01/24 08 Montelukast Sodium 10 MG 2200 01/23 2200 AC 01/24 PO 2200 Morphine Sulfate 8 MG .STK-MED ONE 01/24 0806 DC IM 01/24 08 Nicotinic Acid 750 MG WITH MEALS 01/23 0800 AC 01/24 PO 1700 Oxycodone/ 2 TAB Q6P PRN 01/23 0630 AC Acetaminophen PO Patient Medication 1 ED ONE ONE 01/24 1630 DC Teaching ED 01/24 1631 Potassium Chloride 20 MEQ Q10H 01/23 1400 DC 01/24 Dextrose/Sodium 1,000 ML IV 0115 Chloride Sertraline HCl 150 MG DAILY 01/23 1000 AC 01/23 PO 1513 Sodium Chloride 500 ML BOLUS ONE 01/25 0045 DC 01/25 IV 01/25 0144 0055 Trimethobenzamide HCl 200 MG 4 TIMES/DAY PRN 01/23 1400 AC 01/23 IM 2012 Findings Pertinent Lab/Dileep Results: Laboratory Tests 01/25 01/25 0620 0055 Chemistry Sodium Pending Potassium Pending Chloride Pending Carbon Dioxide Pending Anion Gap Pending BUN Pending Creatinine Pending BUN/Creatinine Ratio Pending Magnesium Pending Troponin I (< 0.11 ng/ml) 0.02 Hematology CBC w Diff Pending WBC Pending RBC Pending Hgb Pending Hct Pending MCV Pending MCH Pending MCHC Pending RDW Pending Plt Count Pending MPV Pending
[2018-01-25 08:11] LABS: ABSOLUTE BASOPHIL COUNT 0 /CUMM (0.0-0.2); BASOPHIL % 0.3 % (0.0-2.0)
[2018-01-25 08:37] LABS: ABSOLUTE EOSINOPHIL COUNT 0.3 /CUMM (0.0-0.7); ABSOLUTE LYMPH COUNT 1.2 /CUMM (1.2-3.4); ABSOLUTE MONOCYTE COUNT 1.1 /CUMM (0.10-0.60); EOSINOPHIL % 2.6 % (0-5); GRANULOCYTE % 75.5 % (42.2-75.2); MEAN CORPUSCULAR HGB 30.4 PG (27.0-31.0); MEAN CORPUSCULAR HGB CONC 33.2 G/DL (33.0-37.0); MEAN CORPUSCULAR VOLUME 91.4 FL (81.0-99.0); MEAN PLATELET VOLUME 7.8 FL (7.4-10.4); PLATELET COUNT 249 /CUMM (130-400); RBC DISTRIBUTION WIDTH 13.4 % (11.5-14.5); WHITE BLOOD CELL COUNT 10.6 /CUMM (4.8-10.8)
[2018-01-25 08:43] LABS: HEMATOCRIT 37.5 % (37-47)
--- NOTE | 2018-01-25 09:21 | PN- General Surgery ---
See Addendum Subjective Subjective: Overnight cardiac events noted, pt with tachycardia, has not had xtended release toprol due to npo status and ngt placement. Presently without complaints of chest pain, shortness of breath and difficulty breathing. No complaints of nausea. No complaints of pain at rest. Peterson catheter remains in place. Has yet to ambulate. Objective Vital Signs and I&Os Vital Signs Date Time Temp Pulse Resp B/P B/P Pulse O2 O2 Flow FiO2 Mean Ox Delivery Rate 01/26 852 96 Nasal 2.0L Cannula 01/25 0625 98.0 109 23 110/64 95 01/25 0446 151 136/60 01/25 0237 133 128/62 01/25 0000 Nasal 2.0L Cannula 01/24 2312 98.3 97 18 118/64 94 Nasal Cannula 01/24 1457 98.0 102 20 116/68 93 Nasal Cannula Intake & Output 01/25 1600 01/25 0800 / 0000 01/24 1600 01/24 0800 01/24 0000 Intake Total 900 800 810 Output Total 520 670 300 450 600 Balance 380 -670 -300 350 210 Intake, IV 900 800 810 Intake, Oral 0 0 0 Number 0 0 Bowel Movements Output, 20 20 Drainage Output, 50 Emesis Output, 300 500 Gastric Drainage Output, Urine 200 150 300 400 600 Patient 232 lb 219 lb Weight Physical Exam: General: Alert and oriented x3, no acute distress Cardaic: Tachycardic, irregular Pulmonary: Non-labored respiratory effort, cta bilaterally ABD: martin-incisional tenderness, no peritonitic signs, dressings dry and intact. LAKEISHA holding suction, serosanguinous drainage noted. Soft distension. No bowel sounds auscultated. Extremities: Moves all extremities, distal sensation intact. Skin warm and well pefused. DP pulses palpable. Bilateral calves soft and nontender. Assessment/Plan Assessment/Plan This is a 67 year old female with a pmh significant for cad, afib and a ventral hernia following an open cholesystectomy 40 years ago. Presented to hospital with 3 day complaint of nausea and vomitting on top of chronic diarrhea. She was brought to the OR one day ago for repair of incarcerated hernia. -Continue ngt for now, output 300 cc overnight, no flatus or evidence of return of bowel function as of yet -Continue lakeisha Dr. Ponomarenko saw patient this am Peterson catheter, fluids, and ngt have been dc'd Home meds have been resumed Diet has been advanced to clear liquid. Will conitnue to monitor lakeisha output and will discuss further plan of care with Dr. Mckay
--- NOTE | 2018-01-25 10:12 | Operative Report ---
Operative/Inv Procedure Report Surgery Date: 01/24/18 Name of Procedure: Open mesh repair of 2 separate incarcerated ventral hernias: #1 large midline epigastric incisional hernia used 12 cm round prior Parietex mesh #2 incarcerated umbilical hernia used 4.3 cm Ventralex mesh Pre-Operative Diagnosis: #1 Epigastric incisional incarcerated ventral hernia with obstructed stomach and unobstructed small bowel #2 Incarcerated umbilical hernia Post-Operative Diagnosis: Same Estimated Blood Loss: less than 50ml Surgeon/International Travel Consultant: MD Min Curry Anesthesia: general endotracheal tube Operative/Procedure Note Note: Patient was placed on the OR table in the supine position. After successful induction of general anesthesia, another timeout was done, antibiotics given, the abdomen was clipped prepped and draped in the usual sterile fashion. The induction did help in getting the hernia to soften a little, but still could not be fully reduced. We approached the larger epigastric hernia first we aimed to reopen her right subcostal scar from a prior cholecystectomy, the medial third of it, measuring about 10 cm long we infiltrated local anesthetic and then excised that scar. We deepened it only slightly with cautery and encountered the incarcerated sac which inferiorly was mostly omentum but superiorly was stomach also inferiorly deeper was a loop of small bowel this was reduced and then cleared off the fascial edge which measured about 7 cm which correlated with what we saw on the CT scan. This was a tight defect I did not feel I could completely close it and either orientation. We first checked the status of the stomach made sure there was no ischemic crease in it or twisting, confirmed position of the NG tube, we did not have to amputate any omentum but the end of it was incarcerated in the umbilical hernia lower down and we were able to get that out bimanually we made a small horizontal umbilical incision and working from both sides were able to deliver that incarcerated omentum. Back on top after checking for hemostasis we chose a round the Parietex 12 cm mesh, marked it centered it and sewed it into place with multiple interrupted 2-0 Prolene sutures symmetrically equidistant and circumferential rings or layers gradually pulling the fascia over it leaving about 4 cm round exposed mesh, meaning there is a 4 cm margin underneath the fascia circumferentially, we also used short continuous runs of 2-0 Maxon suture as well. We also noticed that in the left upper aspect of it there was a small additional fascial defect with some incarcerated fat which we reduced and sewed shut primarily incorporating the underlying mesh. In similar fashion but a much smaller mesh we repaired the umbilical hernia and had the advantage of being able to check its position from within. This defect was oriented horizontally, and we were able to close it, we then inserted the Ventralex coated 4.3 centimeter mesh underneath the defect using the tails to center it and then closed the defect with interrupted 2-0 Maxon sutures in this case 4, incorporating the mesh with each bite. The subcutaneous layer and Kareen's fascia were reapproximated to cover. Both incisions and spaces were irrigated, I placed a round Suman drain in the larger hernia space above brought out through a separate stab incision also care was taken to cover the mesh with the subcutaneous tissue and also bring it together subdermally with 3-0 Vicryl, and then the skin was reapproximated in both incisions with a running subcuticular 4-0 Biosyn, followed by Mastisol, Steri-Strips Telfa Tegaderm. EBL minimal lap and sponge counts correct wound expectancy clean IV fluids crystalloid complications none patient tolerated the procedure well was awakened extubated returned to the recovery room in satisfactory condition.
[2018-01-25 14:48] VITALS: BP 120/66
--- NOTE | 2018-01-25 20:54 | PN- Cardiology ---
Subjective Subjective: * Minimal abdominal discomfort. Otherwise no nausea, chest discomfort, shortness of breath or palpitations. * sinus rhythm with paroxysmal atrial fibrillation with rapid heart rate * potassium 3.3 Objective Vital Signs and I&Os Vital Signs Date Time Temp Pulse Resp B/P B/P Pulse O2 O2 Flow FiO2 Mean Ox Delivery Rate 01/25 1448 98.2 100 18 120/66 93 01/25 1108 103 126/70 01/25 1108 103 126/64 01/25 0852 96 Nasal 2.0L Cannula 01/25 0625 98.0 109 23 110/64 95 01/25 0446 151 136/60 01/25 0237 133 128/62 01/25 0000 Nasal 2.0L Cannula 01/24 2312 98.3 97 18 118/64 94 Nasal Cannula Intake & Output 01/25 1600 01/25 0800 01/25 0000 01/24 1600 01/24 0000 Intake Total 600 900 800 810 Output Total 470 520 670 300 450 600 Balance 130 380 -670 -300 350 210 Intake, IV 200 900 800 810 Intake, Oral 400 0 0 0 Number 0 0 Bowel Movements Output, 20 20 20 Drainage Output, 50 Emesis Output, 150 300 500 Gastric Drainage Output, Urine 300 200 150 300 400 600 Patient 232 lb 232 lb 219 lb Weight Physical Exam: General: WD/obese female in NAD; alert and oriented x 3 HEENT: NC/AT, PERRL, EOMI Neck: no JVD, no carotid bruit Heart: RRR w/o mumrur Lungs: clear bilaterally Abdomen: soft, NT, +ve bowel sounds Extremities: no edema Assessment/Plan Assessment/Plan * No evidence of myocardial ischemia or decompensated CHF. This patient has paroxysms of atrial fibrillation which she carries a history of. Metoprolol has been increased with better rate control. If recurrent atrial fibrillation we will consider changing from Metoprolol to Sotolol. Continue Eliquis for stroke prophylaxis. Continue telemetry? Yes
[2018-01-25 22:35] VITALS: BP 114/68
[2018-01-26 07:31] VITALS: BP 130/88
--- NOTE | 2018-01-26 08:23 | PN- Housestaff ---
Racquel RUBIN,[facility] 01/26/18821: Subjective Follow-up For: Incarcerated ventral hernia status post open repair Tele-Events Since Last Visit: NSR 94 -99 Subjective: Ms. Rodrigeuz was seen and examined this morning. Resting comfortably on the chair beside the bed. She endorses no issues overnight. She states that she is feeling better although states that she's had some right-sided shoulder pain, which seems to be responding to an ice pack. She denies any restrictions with her shoulder movement. Denies any fever, chills, nausea, vomiting. Does state that her appetite has returned however would like to see if we can advance her diet. Her son Bryant was at bedside. Review of Systems Constitutional: Reports: see HPI. Objective Last 24 Hrs of Vital Signs/I&O Vital Signs Date Time Temp Pulse Resp B/P B/P Pulse O2 O2 Flow FiO2 Mean Ox Delivery Rate 01/26 1402 97.9 101 20 112/64 93 Room Air 01/26 0923 94 130/88 01/26 0922 94 130/88 01/26 0731 97.8 94 20 130/88 99 Room Air 01/25 2235 99.2 103 26 114/68 86 01/25 2200 95 Nasal 2.0L Cannula 01/25 2116 93 Nasal 2.0L Cannula 01/25 1448 98.2 100 18 120/66 93 Intake & Output 01/26 1600 01/26 0800 01/26 0000 Intake Total 240 240 Output Total 15 180 Balance 225 60 Intake, Oral 240 240 Number 1 2 Bowel Movements Output, 15 30 Drainage Output, Urine 150 Patient 80.087 kg Weight Physical Exam General Appearance: Alert, Oriented X3, Cooperative Lymphatic: Cervical nl Cardiovascular: Normal S1, Normal S2 Lungs: Clear to Auscultation Abdomen: Normal Bowel Sounds, Soft, No Tenderness, [address] Wounds appear clean, dry and intact. JACKIE drain in place. Neurological: Normal Speech, Strength at 5/5 X4 Ext Extremities: No Edema Other Physical Findings: No Right shoulder movement limitations, abduction and adduction WNL. No erythema, no redness, some tenderness in right shoulder noted. Current Medications: Current Medications Sig/Fatimah Start time Last Medication Dose Route Stop Time Status Admin Acetaminophen 650 MG Q6P PRN 01/25 1100 AC 01/26 PO 0832 Albuterol Sulfate 2 PUF Q4P PRN 01/23 1115 AC INH Apixaban 5 MG BID 01/25 2200 AC 01/26 PO 0924 Atorvastatin Calcium 20 MG 1700 01/25 1700 AC 01/25 PO 1626 Diltiazem HCl 120 MG DAILY 01/25 1100 AC 01/26 PO 0924 Heparin Sodium 5,000 UNIT Q8 01/24 2200 DC 01/25 (Porcine) SC 01/25 2159 1548 Insulin Aspart 0 TIDAC/HS 01/25 1700 AC 01/26 SC 0827 Insulin Detemir 12 UNITS BID 01/26 2200 AC SC Insulin Detemir 8 UNITS BID 01/24 1000 DC 01/26 SC 0923 Losartan Potassium 50 MG DAILY 01/25 1100 AC 01/26 PO 0922 Magnesium Oxide 400 MG ONE ONE 01/26 0830 DC 01/26 PO 01/26 0831 0924 Magnesium Oxide 400 MG ONE ONE 01/25 1600 DC 01/25 PO 01/25 1601 1626 Metoprolol Succinate 100 MG DAILY 01/27 1000 AC PO Metoprolol Succinate 75 MG DAILY 01/25 1100 DC 01/26 PO 0923 Montelukast Sodium 10 MG 2200 01/25 2200 AC 01/25 PO 2144 Nicotinic Acid 750 MG WITH MEALS 01/25 1200 DC PO Oxycodone/ 2 TAB Q6P PRN 01/25 1100 AC Acetaminophen PO Potassium Chloride 40 MEQ ONCE ONE 01/25 1600 DC 01/25 PO 01/25 1601 1735 Sertraline HCl 150 MG DAILY 01/25 1100 AC 01/26 PO 0922 Trimethobenzamide HCl 200 MG 4 TIMES/DAY PRN 01/23 1400 AC 01/23 IM 2013 Last 24 Hrs of Lab/Dileep Results Last 24 Hrs of Labs/Mics: Laboratory Tests 01/26/18 0642: Anion Gap 8, Estimated GFR 50 L, BUN/Creatinine Ratio 20.9, Magnesium 1.7 Assessment/Plan Assessment: Patient is a 67-year-old female with a PMH significant for ACS status post 5 stents placed approximately 3 years ago, chronic ventral hernia present for 40 years, paroxysmal A. fib, diabetes, asthma, bladder cancer, 100 pack year smoking history quit 4 years ago who presented [facility] ED with intractable nausea and vomiting for approximately 3 days. Probelm List - Incarcerated ventral hernia status post open repair - Sinus tachycardia - Hyperglycemia - History of atrial fibrillation on Eliquis and CAD status post 5 stents placement - Right neck/shoulder pain -Postop day #2 -NJ tube, Kristen, D/C IV fluids stopped on 01/25. -Currently on a clear liquid diet, will advance to regular diet and monitor. -Resume PO medication. -Continue Eliquis -Patient HR has been better controlled. -Blood sugar levels between 193 - 223 for the past 24 hours.Levemir increased to 12 units. -K level: 3.7 and mag of 1.7 this morning, we will replete and repeat labs in a.m. -Last White blood cell count trended down to 10.6. DVT prophylaxis; Eliquis Patient is full code Problem List: 1. Atrial fibrillation 2. Incarcerated ventral hernia Pain Ratin Pain Location: No Pain Endorsed Pain Goal: Remain pain free Pain Plan: IV Tylenol PRN Tomorrow's Labs & Rationales: Magnesium: Monitor Magnesium and BEP: monitor electrolytes Jesse Grant 01/26/18 1414: Attending MD Review Statement Attending Statement Attending MD Statement: examined this patient, discuss w/resident/PA/TELEVISION PRODUCER, agreed w/resident/PA/TELEVISION PRODUCER, reviewed EMR data (avail), discussed with nursing Attending Assessment/Plan: Pt tolerating diet. advanced to regular diet. Pt passing gas and is having BMs Restarted back on eliquis. DC tomorrow home.
--- NOTE | 2018-01-26 09:33 | PN- General Surgery ---
Surgical Brief Attending Note Brief Attending Note: reji function returned. Please advance diet. Call when ready for discharge so that drain can be removed.
--- NOTE | 2018-01-26 11:12 | PN- Diabetes ---
Assessment/Plan Diabetes Assessment: Patient underwent surgery for repair of a large ventral hernia with insertion of a mesh. She tolerated clear liquid diet. Now her diet was advanced. Currently patient is on Levemir 8 units twice a day and Novolog coverage before meals. Her FSGs were 223, 220, 193 and 193. Plan: 1. increase Levemir to 12 units twice a day; 2. adjust Novolog coverage before meals and add Novolog coverage at bedtime; detail see the inpatient DM orders; 3. monitor FSGs. will follow. Inpatient Diabetes Orders Before Each Meal: Bolus Insulin: Novolog < 80 mg/dl: no coverage 80-100 mg/dl: 4 units 101-120 mg/dl: 4 units 121-150 mg/dl: 4 units 151-200 mg/dl: 6 units 201-250 mg/dl: 8 units 251-300 mg/dl: 10 units 301-350 mg/dl: 12 units 351-400 mg/dl: 14 units > 400 mg/dl: 15 units Bedtime: Bolus Insulin: Novolog < 80 mg/dl: no coverage 80-100 mg/dl: no coverage 101-120 mg/dl: no coverage 121-150 mg/dl: no coverage 151-200 mg/dl: no coverage 201-250 mg/dl: 2 units 251-300 mg/dl: 3 units 301-350 mg/dl: 4 units 351-400 mg/dl: 5 units > 400 mg/dl: 6 units Subjective Subjective: She feels okay at this point. Objective Last 24 Hrs of Vital Signs/I&O Vital Signs Date Time Temp Pulse Resp B/P B/P Pulse O2 O2 Flow FiO2 Mean Ox Delivery Rate 01/26 923 94 130/88 01/26 922 94 130/88 01/26 0731 97.8 94 20 130/88 99 Room Air 01/25 2235 99.2 103 26 114/68 86 01/25 2200 95 Nasal 2.0L Cannula 01/26 2116 93 Nasal 2.0L Cannula 01/25 1448 98.2 100 18 120/66 93 Intake & Output 01/26 1600 01/26 0800 01/26 0000 Intake Total 240 240 Output Total 15 180 Balance 225 60 Intake, Oral 240 240 Number 1 2 Bowel Movements Output, 15 30 Drainage Output, Urine 150 Patient 177 lb Weight Findings Pertinent Lab/Dileep Results: Laboratory Tests 03/10 0642 Chemistry Sodium (137 - 145 mmol/L) 138 Potassium (3.5 - 5.1 mmol/L) 3.7 Chloride (98 - 107 mmol/L) 93 L Carbon Dioxide (22 - 30 mmol/L) 37 H Anion Gap (5 - 16) 8 BUN (7 - 17 mg/dL) 23 H Creatinine (0.5 - 1.0 mg/dL) 1.1 H Estimated GFR (>60 ml/min) 50 L BUN/Creatinine Ratio (7 - 25 %) 20.9 Magnesium (1.6 - 2.3 mg/dL) 1.7
--- NOTE | 2018-01-26 13:46 | PN- Cardiology ---
Subjective Subjective: * Patient complains of a right shoulder discomfort. No chest pain or shortness of breath. No palpitations. * Occasional bouts of SVT but primarily sinus rhythm. Objective Vital Signs and I&Os Vital Signs Date Time Temp Pulse Resp B/P B/P Pulse O2 O2 Flow FiO2 Mean Ox Delivery Rate 01/26 923 94 130/88 01/26 0922 94 130/88 01/26 0731 97.8 94 20 130/88 99 Room Air 01/255 99.2 103 26 114/68 86 01/25 2200 95 Nasal 2.0L Cannula 01/26 2116 93 Nasal 2.0L Cannula 01/25 1448 98.2 100 18 120/66 93 Intake & Output 01/26 1600 01/26 0801/26 0000 01/25 1600 01/25 0000 Intake Total 240 240 600 900 Output Total 15 180 470 520 670 Balance 225 60 130 380 -670 Intake, IV 200 900 Intake, Oral 240 240 400 0 Number 1 2 Bowel Movements Output, 15 30 20 20 20 Drainage Output, 150 300 500 Gastric Drainage Output, Urine 150 300 200 150 Patient 177 lb 232 lb 232 lb Weight Physical Exam: General: WD/obese female in NAD; alert and oriented x 3 HEENT: NC/AT, PERRL, EOMI Neck: no JVD, no carotid bruit Heart: RRR w/o mumrur Lungs: clear bilaterally Abdomen: soft, NT, +ve bowel sounds Extremities: no edema Assessment/Plan Assessment/Plan * No evidence of myocardial ischemia or decompensated CHF. This patient has paroxysms of atrial fibrillation which is not a new diagnosis. Increase Metoprolol ER to 100mg daily. If recurrent atrial fibrillation we will consider changing from Metoprolol to Sotolol. Continue Eliquis for stroke prophylaxis. Continue telemetry? Yes
[2018-01-26 14:02] VITALS: BP 112/64
[2018-01-26 22:21] VITALS: BP 120/70
[2018-01-27 07:36] VITALS: BP 132/62
--- NOTE | 2018-01-27 08:05 | PN- General Surgery ---
See Addendum Subjective Subjective: feeling well, denies pain, mackenzie hh diet, looking forward to dc from hospital. + bm, +flatus, no n/v. Objective Vital Signs and I&Os Vital Signs Date Time Temp Pulse Resp B/P B/P Pulse O2 O2 Flow FiO2 Mean Ox Delivery Rate 01/27 0736 98.5 89 22 132/62 95 Room Air 01/27 0000 94 Nasal 1.0L Cannula 01/26 2221 98.9 98 20 120/70 94 Nasal Cannula 01/26 1600 Nasal 2.0L Cannula 01/26 1402 97.9 101 20 112/64 93 Room Air 01/26 0923 94 130/88 01/26 0922 94 130/88 Intake & Output 01/27 1600 01/27 0800 01/27 0000 01/26 1600 01/26 0800 01/26 0000 Intake Total 100 250 400 240 240 Output Total 10 0 500 15 180 Balance 90 250 -100 225 60 Intake, IV 10 Intake, Oral 100 240 400 240 240 Number 0 1 2 Bowel Movements Output, 10 15 30 Drainage Output, Urine 0 500 150 Patient 177 lb Weight Physical Exam: GEN- NAD CARD- S1S2 RRR PULM- Clear, decreased at bases ABD- JACKIE with scant serosang drainage (10cc last recorded), removed, tolerated well. dressings dc'ed- steristrips on incisions, minimal dried serosang drainage. abd obese, soft, nt, +bs EXT- calves soft nt bl, alps on Assessment/Plan Assessment/Plan A- POD4 sp repair incarcerated ventral hernia x2, stable from surgical standpoint. P- continue hh diet continue current medical care per primary team Jackie removed. FU with Dr. Mckay in 2 weeks as outpt.
--- NOTE | 2018-01-27 08:11 | Patient Discharge Instructions ---
Discharge Instructions General Discharge Information You were seen/treated for: Epigastric incisional incarcerated ventral hernia with obstructed stomach and unobstructed small bowel, and Incarcerated umbilical hernia You had these procedures: Surgery Date: 01/24/18 Surgeon: Dr. Mckay Name of Procedure: Open mesh repair of 2 separate incarcerated ventral hernias: -large midline epigastric incisional hernia -incarcerated umbilical hernia Other wound care: POSTOPERATIVE CARE: Keep incisions clean and dry. You may shower. Do not soak wounds- no swimming/tub baths. Steristrips on incisions will fall off on their own as adhesive dissoves over time. Keep dry gauze dressing or bandaid over drain site, change as needed. Take pain meds as needed. Activity as tolerated. Call Dr. Mckay's office to schedule appt to be seen 2 weeks from date of surgery. Watch for signs of wound infection. Call his office with any questions/concerns. Special Instructions: Please folloow up with your PCP and Syrgeon within a week after discharge. Diet Recommended Diet: Heart Healthy Activity Activity Self Limited: Yes Acute Coronary Syndrome Inclusion Criteria At DC or during hospital stay patient has or had the following: ACS DIAGNOSIS No Discharge Core Measures Meds if any: Prescribed or Continued at Discharge Meds if any: NOT Prescribed or Continued at Discharge Congestive Heart Failure Inclusion Criteria At DC or during hospital stay patient has or had the following: CHF DIAGNOSIS No Discharge Core Measures Meds if any: Prescribed or Continued at Discharge Meds if any: NOT Prescribed or Continued at Discharge Cerebrovascular accident Inclusion Criteria At DC or during hospital stay patient has or had the following: CVA/TIA Diagnosis No Discharge Core Measures Meds if any: Prescribed or Continued at Discharge Meds if any: NOT Prescribed or Continued at Discharge Venous thromboembolism Inclusion Criteria VTE Diagnosis No VTE Type NONE VTE Confirmed by (Test) NONE Discharge Core Measures - Per Current guidelines, there needs to be overlap - treatment for the first 5 days of Warfarin therapy. - If discharged on Warfarin prior to 5 days of - overlap therapy, the patient will need to be - assessed for post discharge needs including - *Post discharge parental anticoagulation - *Warfarin and/or parental anticoagulation education - *Follow up date to check INR post discharge At least 5 days overlap therapy as Inpatient No Meds if any: Prescribed or Continued at Discharge Note: Overlap Therapy is Warfarin and Anticoagulant Meds if any: NOT Prescribed or Continued at Discharge
--- NOTE | 2018-01-27 08:28 | PN- Housestaff ---
See Addendum Subjective Follow-up For: Incarcerated ventral hernia status post open repair Sinus tachycardia Hx of Atrial fibrillation Tele-Events Since Last Visit: Normal sinus rhythm Heart rate 75 204 Patient had a 3 beat run of V. tach last night. Subjective: Patient complains of right shoulder pain, which she thinks is because of lying in bed in the hospital all the time. Denies any nausea, vomiting, diarrhea/ constipation ,abdominal pain except for some discomfort at the incision site, chest pain, palpitations or shortness of breath. Review of Systems Constitutional: Reports: no symptoms. EENTM: Reports: no symptoms. Cardiovascular: Reports: no symptoms. Respiratory: Reports: no symptoms. Gastrointestinal: Reports: no symptoms. Genitourinary: Reports: no symptoms. Musculoskeletal: Reports: joint pain. Skin: Reports: no symptoms. Neurological/Psychological: Reports: no symptoms. Hematologic/Endocrine: Reports: no symptoms. Immunologic/Allergic: Reports: no symptoms. Objective Last 24 Hrs of Vital Signs/I&O Vital Signs Date Time Temp Pulse Resp B/P B/P Pulse O2 O2 Flow FiO2 Mean Ox Delivery Rate 01/27 0920 89 132/62 01/27 0917 89 132/62 01/27 0736 98.5 89 22 132/62 95 Room Air 01/27 0000 94 Nasal 1.0L Cannula 01/26 2221 98.9 98 20 120/70 94 Nasal Cannula 01/26 1600 Nasal 2.0L Cannula Intake & Output 01/27 1600 01/27 0800 01/27 0000 Intake Total 100 250 Output Total 10 0 Balance 90 250 Intake, IV 10 Intake, Oral 100 240 Number 0 Bowel Movements Output, 10 Drainage Output, Urine 0 Physical Exam General Appearance: Alert, Oriented X3, Cooperative, No Acute Distress Skin: No Rashes, No Breakdown Cardiovascular: Regular Rate, Normal S1, Normal S2 Lungs: Normal Air Movement Abdomen: Normal Bowel Sounds, Soft, No Tenderness Extremities: No Clubbing, No Cyanosis, No Edema Current Medications: Current Medications Sig/Fatimah Start time Last Medication Dose Route Stop Time Status Admin Acetaminophen 650 MG .STK-MED ONE 01/26 222 DC PO 01/26 222 Acetaminophen 650 MG .STK-MED ONE 01/26 1512 DC PO 01/26 1513 Acetaminophen 650 MG Q6P PRN 01/25 1100 AC 01/26 PO 2223 Albuterol Sulfate 2 PUF Q4P PRN 01/23 1115 AC INH Apixaban 5 MG BID 01/25 2200 AC 01/27 PO 0914 Atorvastatin Calcium 20 MG 1700 01/25 1700 AC 01/26 PO 1700 Diltiazem HCl 120 MG DAILY 01/25 1100 AC 01/27 PO 0914 Insulin Aspart 0 TIDAC/HS 01/25 1700 AC 01/27 SC 0919 Insulin Detemir 15 UNITS BID 01/27 1000 AC 01/27 SC 0920 Insulin Detemir 12 UNITS BID 01/26 2200 DC 01/26 SC 2213 Losartan Potassium 50 MG DAILY 01/25 1100 AC 01/27 PO 0920 Metoprolol Succinate 100 MG DAILY 01/27 1000 AC 01/27 PO 0917 Montelukast Sodium 10 MG 22001/25 2200 AC 01/26 PO 2213 Oxycodone/ 2 TAB Q6P PRN 01/25 1100 AC Acetaminophen PO Potassium Chloride 40 MEQ ONCE ONE 01/26 1515 DC 01/26 PO 01/26 1516 1700 Sertraline HCl 150 MG DAILY 01/25 1100 AC 01/27 PO 0916 Trimethobenzamide HCl 200 MG 4 TIMES/DAY PRN 01/23 1400 AC 01/23 IM 2013 Last 24 Hrs of Lab/Dileep Results Last 24 Hrs of Labs/Mics: Laboratory Tests 01/27/18 0645: Anion Gap 8, Estimated GFR 55 L, BUN/Creatinine Ratio 30.0 H, Magnesium 1.9 Assessment/Plan Assessment: Patient is a 67-year-old female with a PMH significant for ACS status post 5 stents placed approximately 3 years ago, chronic ventral hernia present for 40 years, paroxysmal A. fib, diabetes, asthma, bladder cancer, 100 pack year smoking history quit 4 years ago who presented to the [facility] ED with intractable nausea and vomiting for approximately 3 days. Probelm List; - Incarcerated ventral hernia status post open repair - Sinus tachycardia - Hyperglycemia - History of atrial fibrillation on Eliquis and CAD status post 5 stents placement - Right neck/shoulder pain -Postop day #3 -NJ tube, Peterson, D/C IV fluids stopped on 01/25. -On regular diet, tolerating well. -Metoprolol increased to 100 mg daily yesterday, heart rate better controlled now. -Blood sugar levels between 193 - 327 for the past 24 hours.Levemir increased to 15 units BID. -Continue home medications including Eliquis. DVT prophylaxis; Eliquis Patient is full code Problem List: 1. Incarcerated ventral hernia 2. Atrial fibrillation Pain Ratin Pain Location: None Pain Goal: Remain pain free Pain Plan: Pain Pathway Tomorrow's Labs & Rationales: None
[2018-01-27] MEDS ORDERED: TOPROL XL100 M1 PO ×2 (08:35→13:30)
--- NOTE | 2018-01-27 09:04 | PN- Diabetes ---
Assessment/Plan Diabetes Assessment: Patient underwent surgery for repair of a large ventral hernia with insertion of a mesh. She has tolerated the diet. Levemir was increased to 12 units twice a day. Novolog coverage before meals was adjusted on 01/26/2018. Her FSGs were 193, 207, 327, 167 and 203. Plan: 1. increase Levemir to 15 units twice a day; 2. continue the current Novolog coverage before meals and Novolog coverage at bedtime; 3. monitor FSGs. will follow. Subjective Subjective: She feels well this morning. Objective Last 24 Hrs of Vital Signs/I&O Vital Signs Date Time Temp Pulse Resp B/P B/P Pulse O2 O2 Flow FiO2 Mean Ox Delivery Rate 01/27 0736 98.5 89 22 132/62 95 Room Air 01/27 0000 94 Nasal 1.0L Cannula 01/26 2221 98.9 98 20 120/70 94 Nasal Cannula 01/26 1600 Nasal 2.0L Cannula 01/26 1402 97.9 101 20 112/64 93 Room Air 01/26 0923 94 130/88 01/26 0922 94 130/88 Intake & Output 01/27 1600 01/27 0800 01/27 0000 Intake Total 100 250 Output Total 10 0 Balance 90 250 Intake, IV 10 Intake, Oral 100 240 Number 0 Bowel Movements Output, 10 Drainage Output, Urine 0 Findings Pertinent Lab/Dileep Results: Laboratory Tests 01/27 0645 Chemistry Sodium (137 - 145 mmol/L) 136 L Potassium (3.5 - 5.1 mmol/L) 3.8 Chloride (98 - 107 mmol/L) 95 L Carbon Dioxide (22 - 30 mmol/L) 33 H Anion Gap (5 - 16) 8 BUN (7 - 17 mg/dL) 30 H Creatinine (0.5 - 1.0 mg/dL) 1.0 Estimated GFR (>60 ml/min) 55 L BUN/Creatinine Ratio (7 - 25 %) 30.0 H Magnesium (1.6 - 2.3 mg/dL) 1.9
[2018-01-27 09:20] VITALS: BP 132/62
[2018-01-27] MEDS ORDERED: LANTUS SOL100 UNIT/1 SC ×2 (12:09→13:30)
[2018-01-27] MEDS ORDERED: NOVOLOG FL100 UNIT/1 SC (12:14)
[2018-01-27] MEDS ORDERED: TYLENOL325 M1 PO (12:23)
--- NOTE | 2018-01-27 14:05 | PN- Cardiology ---
Subjective Subjective: * No chest pain or shortness of breath. No palpitations. Tolerating current dose of Metoprolol. * Occasional bouts of SVT but primarily sinus rhythm. Objective Vital Signs and I&Os Vital Signs Date Time Temp Pulse Resp B/P B/P Pulse O2 O2 Flow FiO2 Mean Ox Delivery Rate 01/27 0920 89 132/62 01/27 0917 89 132/62 01/27 0736 98.5 89 22 132/62 95 Room Air 01/27 0000 94 Nasal 1.0L Cannula 01/26 2221 98.9 98 20 120/70 94 Nasal Cannula 01/26 1600 Nasal 2.0L Cannula Intake & Output 01/27 1600 01/27 0800 01/27 0000 01/26 1600 01/26 0800 01/26 0000 Intake Total 100 250 400 240 240 Output Total 10 0 500 15 180 Balance 90 250 -100 225 60 Intake, IV 10 Intake, Oral 100 240 400 240 240 Number 0 1 2 Bowel Movements Output, 10 15 30 Drainage Output, Urine 0 500 150 Patient 177 lb Weight Physical Exam: General: WD/obese female in NAD; alert and oriented x 3 HEENT: NC/AT, PERRL, EOMI Neck: no JVD, no carotid bruit Heart: RRR w/o mumrur Lungs: clear bilaterally Abdomen: soft, NT, +ve bowel sounds Extremities: no edema Assessment/Plan Assessment/Plan * No evidence of myocardial ischemia or decompensated CHF. This patient has paroxysms of atrial fibrillation which is not a new diagnosis. Continue Metoprolol ER at 100mg daily. 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 Continue Eliquis for stroke prophylaxis. Continue telemetry? No
--- NOTE | 2018-01-27 19:43 | Discharge Summary ---
Hospital Course Allergies: Coded Allergies: Penicillins (HIVES 01/23/18) midazolam (From VERSED) (NAUSEA 01/23/18) Discharge Instructions Medications at Discharge Discharge Medications: Stop taking the following medications: Metoprolol Succ XL (Toprol XL) 25 MG TAB ORAL DAILY Qty = 30 Niacin (Niaspan) 500 MG TAB.ER.24H ORAL Every night Qty = 30 Continue taking these medications: Apixaban (Eliquis) 5 MG TABLET 1 Tablet ORAL TWICE DAILY Qty = 30 Comments: Last Taken:01/27/18 Time:1000 Clopidogrel Bisulfate (Plavix) 75 MG TABLET 1 Tablet ORAL DAILY Qty = 30 Sertraline HCl (Zoloft) 100 MG TABLET 1.5 Tablet ORAL DAILY Qty = 30 Comments: Last Taken:01/27/18 Time:1000 Losartan Potassium (Cozaar) 50 MG TABLET 1 Tablet ORAL DAILY Qty = 30 Comments: Last Taken:01/27/18 Time:1000 Montelukast Sodium (Singulair) 10 MG TABLET 1 Tablet ORAL DAILY Qty = 30 Comments: Last Taken:01/26/18 Time:10 PM Hydrochlorothiazide (Hydrochlorothiazide) 12.5 MG TABLET 1 Tablet ORAL DAILY Qty = 30 Diltiazem HCl (Diltiazem 12HR ER) 120 MG CAP.ER.12H 1 Capsule ORAL DAILY Qty = 30 Comments: Last Taken:01/27/18 Time:1000 Atorvastatin Calcium (Lipitor) 20 MG TABLET 1 Tablet ORAL DAILY Qty = 30 Comments: Last Taken:01/26/18 Time:1700 Insulin Aspart, Recombinant (Novolog Flexpen) 100 UNIT/ML INSULN.PEN 0 Inject into fatty tissue DAILY Instructions: < 150 No Insulin 150-200 6 units 201-250 8 untis 251-300 10 units 301-350 12 units 351-400 14 units >400 15 units Comments: Last Taken:01/27/18 Time:0800 Start taking the following new medications: Metoprolol Succ XL (Toprol XL) 100 MG TAB.ER.24H 1 Tablet ORAL DAILY Qty = 30 No Refills Instructions: . Comments: Last Taken:01/27/18 Time: The following medications have been changed: Old: Insulin Glargine,Hum.rec.anlog (Lantus Solostar) 100 UNIT/ML (3 ML) INSULN.PEN 37 Unit Inject into fatty tissue Every night Qty = 1 New: Insulin Glargine,Hum.rec.anlog (Lantus Solostar) 100 UNIT/ML (3 ML) INSULN.PEN 15 Unit Inject into fatty tissue TWICE DAILY Qty = 1 Comments: Last Taken:01/27/18 Time:1000
== END 2018-01-27 16:40 | disposition home health service (06) | DRG 354 ==
LOC: ERH 01:59 → ERHI 04:07 → 2NB 04:07 → 1NO 04:07 → ENRESERV 05:27 → 2NB 05:58 → 1NO 01-24 12:01 → ENPENDDIS 01-27 14:08 → 1NO 01-27 16:40
PROVIDERS: Pediatrics; Physician Assistant Surgical; Student in an Organized Health Care Education/Training Program
PROC: 0WUF0JZ Supplement Abdominal Wall with Synthetic Substitute, Open Approach (ICD-10-PCS; principal; 2018-01-24)
DX: K43.0 Incisional hernia with obstruction, without gangrene (principal); E87.3 Alkalosis; E11.65 Type 2 diabetes mellitus with hyperglycemia; E66.01 Morbid (severe) obesity due to excess calories; I48.2 Chronic atrial fibrillation; I47.1 Supraventricular tachycardia; E86.0 Dehydration; E78.5 Hyperlipidemia, unspecified; K42.0 Umbilical hernia with obstruction, without gangrene; I10 Essential (primary) hypertension; J45.909 Unspecified asthma, uncomplicated; F32.9 Major depressive disorder, single episode, unspecified; F41.9 Anxiety disorder, unspecified; Z79.01 Long term (current) use of anticoagulants; Z68.36 Body mass index [BMI] 36.0-36.9, adult; I25.10 Atherosclerotic heart disease of native coronary artery without angina pectoris; K52.9 Noninfective gastroenteritis and colitis, unspecified; Z85.51 Personal history of malignant neoplasm of bladder; Z95.5 Presence of coronary angioplasty implant and graft; Z89.421 Acquired absence of other right toe(s); Z90.49 Acquired absence of other specified parts of digestive tract; Z89.422 Acquired absence of other left toe(s); Z79.4 Long term (current) use of insulin; Z88.0 Allergy status to penicillin; Z88.8 Allergy status to other drugs, medicaments and biological substances; Z87.891 Personal history of nicotine dependence
CPT/HCPCS: 1NSP; 2NBP; 36415; 36592; 71045; 74176; 81001; 82436; 87086; 87804; 87804-59; 93005; 93010; 96361; 96374; 96375; C1781; J0131; J1644; J1815; J2405; J2550; J3250; J3490; J7040; J7042; J7508